=== PATIENT | male | born 1970 | race Caucasian/White ===

== ENCOUNTER 2020-06-21 14:52 | Emergency (ER) | payer SELFPAY ==
[2020-06-21 14:59] VITALS: BP 126/68; PULSE 91; RESP 20; TEMP 37; O2SAT 97
[2020-06-21] MEDS: LIDO 1%/SOD BICARB 8.4% (10ML) 10 ML SYRINGE INJ (16:00)
--- NOTE | 2020-06-21 19:44 | ED.SKABFB ---
HPI - Skin/Abscess/Foreign Bdy <LUIS EDUARDO Sands - Last Filed: 06/21/20 19:49> General Chief complaint: Skin/Abscess/Foreign Body Stated complaint: states a boil on his back Time Seen by Provider: 06/21/20 14:58 Source: patient Mode of arrival: Ambulatory Limitations: no limitations History of Present Illness HPI narrative: The patient is a 50-year-old male nonsmoker who denies pertinent medical history presents with a chief complaint of an abscess on his back. He has noted it to be there for about 4 days. No fevers nausea vomiting or diarrhea. He states he has a history of abscesses, is unsure whether not he has had MRSA. He states he would like to have the abscess evaluated and she is concerned that is on the back of his heart. States that he has had to have abscesses drained in the past. States his becoming history painful. Has not taken anything to feel better. Related Data Previous Rx's Medication Instructions Recorded cephalexin 500 mg PO TID #30 cap 06/21/20 doxycycline hyclate 100 mg PO BID #14 tab 06/21/20 Allergies Allergy/AdvReac Type Severity Reaction Status Date / Time No Known Drug Allergies Allergy Verified 06/21/20 15:17 Review of Systems <LUIS EDUARDO Sands - Last Filed: 06/21/20 19:49> Review of Systems Narrative: GENERAL: Denies chills, fatigue, malaise, fever, sweats. HEENT: Denies sinus pain, ear pain, sore throat, difficulty swallowing, dizziness. RESPIRATORY: Denies dyspnea, cough, wheezing, hemoptysis, sputum. CARDIOVASCULAR: Denies chest pain, palpitations, orthopnea, edema, GASTROINTESTINAL: Denies nausea, vomiting, abdominal pain, diarrhea, constipation, melena. : Denies dysuria, frequency, incontinence, hematuria, urinary retention. MUSCULOSKELETAL: denies weakness, joint pain, or bony pain SKIN: See HPI NEUROLOGIC: Denies weakness, headache, numbness, change in speech, confusion, seizures, incoordination. PSYCHIATRIC: No concerning psychosocial issues. 12 point review of systems is negative except for those stated above Exam <LUIS EDUARDO Sands - Last Filed: 06/21/20 19:49> Narrative Exam Narrative: GENERAL: This is a well-nourished, well-developed patient, in no acute distress HEAD: Atraumatic. Normocephalic. No temporal or scalp tenderness. EYES: Pupils equal round and reactive. Extraocular motions intact. No scleral icterus. No injection or drainage. ENT: Nose without bleeding, purulent drainage or septal hematoma. Throat without erythema, tonsillar hypertrophy or exudate. Uvula midline. Airway patent. NECK: Trachea midline. No JVD or lymphadenopathy. Supple, nontender, no meningeal signs. CARDIOVASCULAR: Regular rate and rhythm RESPIRATORY: Clear to auscultation. Breath sounds equal bilaterally. No wheezes, rales, or rhonchi. No cough. No increased respiratory effort. No accessory muscle use. EXTREMITIES: No clubbing, cyanosis, or edema. No joint tenderness, effusion, or edema noted. BACK: CT and L-spine are Nontender without deformity or crepitance. No flank tenderness. 4 x 4 cm abscess noted right shoulder. 3 x 3 cm a palpable fluctuance. Overlying erythema noted. Pustule noted on top. NEURO: AOx3. SKIN: See back exam Initial Vital Signs Initial Vital Signs: Vital Signs Temperature 98.6 F 06/21/20 14:59 Pulse Rate 91 H 06/21/20 14:59 Respiratory Rate 20 06/21/20 14:59 Blood Pressure 126/68 06/21/20 14:59 Pulse Oximetry 97 06/21/20 14:59 <Alexei Cotto DO - Last Filed: 06/22/20 23:42> Initial Vital Signs Initial Vital Signs: Vital Signs Temperature 98.6 F 06/21/20 14:59 Pulse Rate 91 H 06/21/20 14:59 Respiratory Rate 06/21/20 14:59 Blood Pressure 126/68 06/21/20 14:59 Pulse Oximetry 97 06/21/20 14:59 Procedures <LUIS EDUARDO Sands - Last Filed: 06/21/20 19:49> Abscess I/D I&D #1: Site: back Side (if applicable): right Local Anesthetic: lidocaine 1% and with bicarb Amount of anesthesia used (mL): 6 Technique: incised with #11 blade Irrigation: Yes Packing used?: none Complications: pain Course <LUIS EDUARDO Sands - Last Filed: 06/21/20 19:49> Orders Ordered: Discontinued Medications Lidocaine/Sodium Bicarbonate (Buffered Lidocaine 10 Ml Syr) 10 ml INJ NOW ONE Stop: 06/21/20 15:05 Last Admin: 06/21/20 16:00 Dose: 10 ml Documented by: DU Vital Signs Vital signs: Vital Signs - 8 hr 06/21/20 14:59 Temperature 98.6 F Pulse Rate 91 H Respiratory Rate 20 Blood Pressure 126/68 Pulse Oximetry 97 <Alexei Cotto DO - Last Filed: 06/22/20 23:42> Orders Ordered: Discontinued Medications Lidocaine/Sodium Bicarbonate (Buffered Lidocaine 10 Ml Syr) 10 ml INJ NOW ONE Stop: 06/21/20 15:05 Last Admin: 06/21/20 16:00 Dose: 10 ml Documented by: DU Vital Signs Vital signs: Vital Signs - 8 hr 06/21/20 14:59 Temperature 98.6 F Pulse Rate 91 H Respiratory Rate 20 Blood Pressure 126/68 Pulse Oximetry 97 MDM - Skin/Abscess/Foreign Bdy <LUIS EDUARDO Sands - Last Filed: 06/21/20 19:49> Differential Diagnosis Differential diagnosis: Likely abscess of skin or subcutaneous tissue MDM Narrative Medical decision making narrative: The patient is a 50-year-old male who presents with a chief complaint of an abscess. His abscess was drained, tolerated well. Given that he has a history of abscesses, is unclear about MRSA history will provide coverage with Keflex and doxycycline. Discussed using warm packs, monitoring for fevers extending redness signs of infection. Gave contact information to the [facility] health family resource management specialist with instructions to follow up with primary care provider discussed come back to ER for acute concerns. Patient has no questions or concerns upon discharge and states understanding return precautions as well as follow-up care. Discharge Plan Departure Patient Disposition: Home Clinical Impression: Abscess of skin or subcutaneous tissue Qualifiers: Site of cutaneous abscess: trunk Site of cutaneous abscess of trunk: back Qualified Code(s): L02.212 - Cutaneous abscess of back [any part, except buttock] Discharge Date/Time: 06/21/20 16:45 Instructions: DI for Skin Abscess, DI for Incision and Drainage Activity Restrictions/Additional Instructions: Thank you for trusting us with your care today. Today I drained an abscess. [facility]. Please take them with probiotic or yogurt. Please monitor for fevers, vomiting, diarrhea or signs of worsening. Please use warm packs to help the abscess continue to drain and [id number] medications as needed and able Please follow-up with primary care provider in the next few days. I have given contact information to the [facility] family resource management specialist who can help you find a primary care Prescriptions: New cephalexin 500 mg capsule 500 mg PO TID Qty: 30 RF: 0 doxycycline hyclate 100 mg tablet 100 mg PO BID Qty: 14 RF: 0 Referrals: [facility] [Outside] <Alexei Cotto DO - Last Filed: 06/22/20 23:42> Cosign ED Attending Cosignature Attestation: I was immediately available in the department for consultation. This documentation has been reviewed and I agree with assessment and plan. Supervised by Alexei Cotto DO
== END 2020-06-21 16:45 | disposition home or self-care (01) ==
PROVIDERS: Emergency Provider Nurse Practitioner Family
DX: L02.212 Cutaneous abscess of back [any part, except buttock and flank] (principal)
CPT/HCPCS: 10060; 87070; 87075; 87205; 99283

== ENCOUNTER 2020-10-15 19:15 | Observation (INO) | payer OTHER, MEDICAID, SELFPAY ==
[2020-10-15] VITALS (22 sets, daily range): BP systolic 114–140; BP diastolic 62–76; PULSE 79–96; RESP 15–27; TEMP 37–38.1; O2SAT 90–100; BMI 29.2
--- NOTE | 2020-10-15 19:29 | ED.RECABL ---
HPI - Recheck/Abnormal Lab/Rx General Chief Complaint: Recheck/Abnormal Lab/Rx Stated Complaint: sent for abn labs Time Seen by Provider: 10/15/20 19:20 Source: patient Mode of arrival: Ambulatory Limitations: no limitations History of Present Illness HPI narrative: 50-year-old male nonsmoker with history reflux presents at the request of his primary care provider. He was in for routine visit and labs were drawn which were found to note a critically low calcium, he was sent here for further evaluation. He denies any symptoms of bilateral knee pain. He is not dizzy nor weak or lightheaded. Denies chest pain shortness of breath. He has had no abdominal pain, nausea vomiting. He denies any exposure to known COVID and has had no runny nose, sore throat or cough. He denies any dietary change. MD complaint: abnormal lab Related Data Previous Rx's Medication Instructions Recorded cephalexin 500 mg PO TID #30 cap 06/21/20 doxycycline hyclate 100 mg PO BID #14 tab 06/21/20 Allergies Allergy/AdvReac Type Severity Reaction Status Date / Time No Known Drug Allergies Allergy Verified 06/21/20 15:17 Review of Systems Constitutional Constitutional: Denies chills, Denies fatigue, Denies fever(s), Denies frequent falls, Denies lethargy and Denies weakness Eyes Eyes: Denies change in vision, Denies eye discharge, Denies irritation and Denies loss of vision ENT Ears, Nose, Mouth, and Throat: Denies change in voice, Denies dizziness, Denies neck pain, Denies sore throat and Denies throat swelling Cardiovascular Cardiovascular: Denies chest pain, Denies irregular heart rhythm, Denies lightheadedness, Denies palpitations, Denies dyspnea, Denies dyspnea on exertion and Denies orthopnea Respiratory Respiratory: Denies cough, Denies dyspnea, Denies dyspnea on exertion and Denies wheezing Gastrointestinal Gastrointestinal: Denies abdominal pain, Denies change in bowel habits, Denies diarrhea, Denies nausea and Denies vomiting Musculoskeletal Musculoskeletal: Denies neck pain and Denies numbness Comments: Bilateral knee pain Integumentary/Breasts Skin/Breast: Denies pruritus, Denies erythema, Denies rash and Denies wounds Neurologic Neurologic: Denies behavioral changes, Denies confusion, Denies dizziness, Denies frequent falls, Denies loss of vision, Denies numbness and Denies weakness Psychiatric Psychiatric: Denies anxiety, Denies behavioral changes, Denies confusion, Denies depression, Denies homicidal ideation and Denies suicidal ideation Endocrine Endocrine: Denies fatigue, Denies flushing and Denies palpitations Hematologic/Lymphatic Hematologic/Lymphatic: Denies easy bruising Allergic/Immunologic Allergic/Immunologic: Denies urticaria, Denies throat swelling and Denies wheezing Patient History Medical History Acute anemia Bilateral knee pain Surgical History No history of previous surgery Family History Mother COPD (chronic obstructive pulmonary disease) Alcoholism Supplemental oxygen dependent Father Alcoholism Social History household members: none Smoking Status: Never smoker Smoking Status: Never smoker alcohol intake frequency: 0-2 drinks per day Substance Use Type: does not use Exam Narrative Exam Narrative: GENERAL: [50] year old patient appears stated age. Well-nourished, well-developed patient, in mild distress. HEAD: Atraumatic. Normocephalic. EYES: Pupils equal round and reactive. Extraocular motions intact. No scleral icterus. Pale conjunctiva ENT: Moist mucous membranesNose without bleeding, purulent drainage. Throat without erythema, tonsillar hypertrophy or exudate. Airway patent. NECK: Trachea midline. Non tender CARDIOVASCULAR: Regular rate and rhythm without murmurs, gallops, or rubs. RESPIRATORY: Clear to auscultation. Breath sounds equal bilaterally. No wheezes, rales, or rhonchi. GASTROINTESTINAL: Abdomen soft, non-tender, nondistended. EXTREMITIES: No edema or joint tenderness. BACK: Nontender without deformity or crepitance. No flank tenderness. NEURO: AOx3. SKIN: No rash or erythema of visible areas Initial Vital Signs Initial Vital Signs: Vital Signs Pulse Rate 96 H 10/15/20 19:20 Blood Pressure 135/63 10/15/20 19:20 Pulse Oximetry 96 10/15/20 19:20 Course Orders Ordered: ED Orders 10/15/20 19:35 Complete Blood Count AUTO DIFF Stat Comprehensive Metabolic Panel Stat Magnesium Stat Vitamin D 25 Hydroxy (D3) Stat 10/15/20 19:39 EKG-12 Lead Stat 10/15/20 19:46 Ionized Calcium Stat Packed Cells Stat Phosphorous Stat Type and Screen Stat 10/15/20 20:37 COVID19 Stat Acetaminophen (Acetaminophen 325 Mg Tablet) 650 mg PO Q6HR PRN PRN Reason: Fever/Mild Pain (1-3) Last Admin: 10/16/20 01:14 Dose: 650 mg Documented by: HEAVEN Sodium Chloride (Normal Saline 0.9%) 1,000 mls @ 100 mls/hr IV CONT RAND Naloxone HCl (Naloxone 0.4 Mg/Ml Vial) 0.2 mg IV Q2MIN PRN PRN Reason: Opiate Reversal Ondansetron HCl (Ondansetron 4 Mg/2 Ml Inj) 4 mg IV Q8HR PRN PRN Reason: Nausea And Vomiting Discontinued Medications Calcitriol (Calcitriol 0.25 Mcg Capsule) 0.25 mcg PO NOW ONE Stop: 10/15/20 21:39 Last Admin: 10/15/20 22:23 Dose: 0.25 mcg Documented by: MARY Calcitriol (Calcitriol 0.25 Mcg Capsule) 0.25 mcg PO NOW ONE Stop: 10/16/20 00:05 Sodium Chloride (Normal Saline 0.9%) 1,000 mls @ 1,000 mls/hr IV BOLUS ONE Stop: 10/15/20 20:25 Last Infusion: 10/15/20 23:08 Dose: 0 mls/hr Documented by: Admin: 10/15/20 19:53 Dose: 1,000 mls/hr Documented by: MARY Magnesium Sulfate (Magnesium Sulfate) 2 gm in 50 mls @ 25 mls/hr IV NOW ONE Stop: 10/15/20 22:18 Last Infusion: 10/15/20 23:02 Dose: 0 mls/hr Documented by: MARY Cosigned by: SYLVIA Admin: 10/15/20 20:52 Dose: 25 mls/hr Documented by: MARY Cosigned by: MARIE Potassium Chloride 40 meq/ (Sodium Chloride) 520 mls @ 130 mls/hr IV NOW ONE Stop: 10/16/20 00:20 Last Infusion: 10/15/20 23:07 Dose: 0 mls/hr Documented by: MARY Cosigned by: SYLVIA Admin: 10/15/20 20:33 Dose: 130 mls/hr Documented by: MARY Cosigned by: SYLVIA Calcium Gluconate 9.3 meq/ (Sodium Chloride) 70 mls @ 140 mls/hr IV NOW ONE Stop: 10/15/20 21:13 Last Infusion: 10/15/20 21:43 Dose: 0 mls/hr Documented by: Admin: 10/15/20 21:06 Dose: 140 mls/hr Documented by: MARY Magnesium Sulfate (Magnesium Sulfate) 2 gm in 50 mls @ 25 mls/hr IV NOW ONE Stop: 10/16/20 02:03 Potassium Chloride (Potassium Chloride 20 Meq Tab) 40 meq PO NOW ONE Stop: 10/16/20 00:05 Consultations Consultation #1: discussed electrolyte abnormalities with Nephrology at [facility] ([place]). Happy with plan to initially replace Mag followed by K and Ca. Recommends PTH, Vit D. Hospitalization, following labs. Consultation #2: hospitalist happy to accept Vital Signs Vital signs: Vital Signs - 8 hr 10/15/20 19:20 10/15/20 19:24 10/15/20 19:30 Temperature 99.6 F Pulse Rate 96 H 93 H 92 H Respiratory Rate 15 Blood Pressure 135/63 135/63 Pulse Oximetry 96 98 98 10/15/20 20:00 10/15/20 20:30 10/15/20 21:00 Temperature Pulse Rate 91 H 85 85 Respiratory Rate 26 H 21 Blood Pressure 137/68 118/64 130/66 Pulse Oximetry 100 99 100 10/15/20 21:19 10/15/20 21:20 10/15/20 21:22 Temperature 100.0 F H Pulse Rate 83 83 81 Respiratory Rate 20 23 22 Blood Pressure 126/66 120/66 126/66 Pulse Oximetry 99 99 10/15/20 21:25 10/15/20 21:26 10/15/20 21:30 Temperature 100.4 F H Pulse Rate 83 91 H 82 Respiratory Rate 18 19 20 Blood Pressure 123/66 123/66 125/69 Pulse Oximetry 99 99 10/15/20 21:33 10/15/20 21:35 10/15/20 21:40 Temperature 100.5 F H 99.8 F H Pulse Rate 84 93 H 80 Respiratory Rate 24 27 H 24 Blood Pressure 125/69 114/74 140/68 Pulse Oximetry 100 98 10/15/20 21:45 10/15/20 21:50 10/15/20 21:55 Temperature Pulse Rate 82 81 82 Respiratory Rate 20 22 22 Blood Pressure 131/66 131/65 126/62 Pulse Oximetry 98 98 98 10/15/20 22:00 10/15/20 22:05 Temperature Pulse Rate 81 82 Respiratory Rate 21 22 Blood Pressure 130/67 130/70 Pulse Oximetry 98 98 MDM - Recheck/Abnormal Lab/Rx Lab Data Result diagrams: 10/15/20 23:05 10/15/20 23:05 Labs: Lab Results 10/15/20 10/15/20 10/15/20 Range/Units 19:35 19:35 19:35 WBC 10.3 (4.5-11.0) X10^3/uL RBC 3.57 L (4.5-5.9) X10^6/uL Hgb 5.7 L* (13.5-17.5) g/dL Hct 20.1 L* (41-53) % MCV 56.3 L (80-100) fL MCH 15.8 L (26-34) PG MCHC 28.1 L (30-36) % RDW 21.5 H (11.6-14.8) % Plt Count 344 (150-400) X10^3/uL Neut % (Auto) 79.2 H (50-75) % Lymph % (Auto) 12.7 L (25-40) % Smyth % (Auto) 5.7 (3-14) % Eos % (Auto) 1.2 L (2-4) % Baso % (Auto) 1.2 (0-2) % Neut # (Auto) 8100 H (7366-9797) /uL Lymph # (Auto) 1300 (7113-2438) /uL Smyth # (Auto) 600 (0-900) /uL Eos # (Auto) 100 (0-450) /uL Baso # (Auto) 100 (0-100) /uL RBC Morphology Abnormal Polychromasia 1+ H Hypochromasia 4+ H Microcytosis 3+ H Sodium 141 (137-145) mmol/L Potassium 2.7 L* (3.4-5.1) mmol/L Chloride 103 (98-107) mmol/L Carbon Dioxide 27 (22-32) mmol/L BUN 7 L (9-20) mg/dL Creatinine 1.03 (0.66-1.25) mg/dL Estimated GFR > 60.0 (>60) mL/min BUN/Creatinine Ratio 6.8 (6-22) Glucose 119 H (70-100) mg/dL Calcium 5.9 L* (8.4-10.2) mg/dL Phosphorus Magnesium 0.5 L* (1.6-2.3) mg/dL Total Bilirubin 0.3 (0.2-1.3) mg/dL AST 22 (17-59) IU/L ALT 11 (<50) IU/L Alkaline Phosphatase 48 (38-126) U/L Total Protein 7.0 (6.3-8.2) g/dL Albumin 4.0 (3.5-5.0) g/dL Globulin 3.0 (1.7-4.1) g/dL Albumin/Globulin Ratio 1.3 (1.0-2.8) Lipase 25-OH Vitamin D Total 34.0 (30.0-100.0) ng/mL TSH (0.47-4.68) uIU/mL Random Cortisol ug/dL SARS-CoV-2 (PCR) (Negative) Blood Type Antibody Screen Crossmatch 10/15/20 10/15/20 10/15/20 Range/Units 19:35 19:35 19:35 WBC (4.5-11.0) X10^3/uL RBC (4.5-5.9) X10^6/uL Hgb (13.5-17.5) g/dL Hct (41-53) % MCV (80-100) fL MCH (26-34) PG MCHC (30-36) % RDW (11.6-14.8) % Plt Count (150-400) X10^3/uL Neut % (Auto) (50-75) % Lymph % (Auto) (25-40) % Smyth % (Auto) (3-14) % Eos % (Auto) (2-4) % Baso % (Auto) (0-2) % Neut # (Auto) (6026-1983) /uL Lymph # (Auto) (2617-7428) /uL Smyth # (Auto) (0-900) /uL Eos # (Auto) (0-450) /uL Baso # (Auto) (0-100) /uL RBC Morphology Polychromasia Hypochromasia Microcytosis Sodium (137-145) mmol/L Potassium (3.4-5.1) mmol/L Chloride (98-107) mmol/L Carbon Dioxide (22-32) mmol/L BUN (9-20) mg/dL Creatinine (0.66-1.25) mg/dL Estimated GFR (>60) mL/min BUN/Creatinine Ratio (6-22) Glucose (70-100) mg/dL Calcium (8.4-10.2) mg/dL Phosphorus Cancelled Magnesium Cancelled (1.6-2.3) mg/dL Total Bilirubin (0.2-1.3) mg/dL AST (17-59) IU/L ALT (<50) IU/L Alkaline Phosphatase (38-126) U/L Total Protein (6.3-8.2) g/dL Albumin (3.5-5.0) g/dL Globulin (1.7-4.1) g/dL Albumin/Globulin Ratio (1.0-2.8) Lipase Cancelled 25-OH Vitamin D Total (30.0-100.0) ng/mL TSH 1.57 (0.47-4.68) uIU/mL Random Cortisol 7.67 ug/dL SARS-CoV-2 (PCR) (Negative) Blood Type Antibody Screen Crossmatch 10/15/20 10/15/20 10/15/20 Range/Units 19:46 19:46 20:37 WBC (4.5-11.0) X10^3/uL RBC (4.5-5.9) X10^6/uL Hgb (13.5-17.5) g/dL Hct (41-53) % MCV (80-100) fL MCH (26-34) PG MCHC (30-36) % RDW (11.6-14.8) % Plt Count (150-400) X10^3/uL Neut % (Auto) (50-75) % Lymph % (Auto) (25-40) % Smyth % (Auto) (3-14) % Eos % (Auto) (2-4) % Baso % (Auto) (0-2) % Neut # (Auto) (0909-9645) /uL Lymph # (Auto) (0074-4095) /uL Smyth # (Auto) (0-900) /uL Eos # (Auto) (0-450) /uL Baso # (Auto) (0-100) /uL RBC Morphology Polychromasia Hypochromasia Microcytosis Sodium (137-145) mmol/L Potassium (3.4-5.1) mmol/L Chloride (98-107) mmol/L Carbon Dioxide (22-32) mmol/L BUN (9-20) mg/dL Creatinine (0.66-1.25) mg/dL Estimated GFR (>60) mL/min BUN/Creatinine Ratio (6-22) Glucose (70-100) mg/dL Calcium (8.4-10.2) mg/dL Phosphorus 2.9 Magnesium (1.6-2.3) mg/dL Total Bilirubin (0.2-1.3) mg/dL AST (17-59) IU/L ALT (<50) IU/L Alkaline Phosphatase (38-126) U/L Total Protein (6.3-8.2) g/dL Albumin (3.5-5.0) g/dL Globulin (1.7-4.1) g/dL Albumin/Globulin Ratio (1.0-2.8) Lipase 25-OH Vitamin D Total (30.0-100.0) ng/mL TSH (0.47-4.68) uIU/mL Random Cortisol ug/dL SARS-CoV-2 (PCR) Negative (Negative) Blood Type A Positive Antibody Screen Negative Crossmatch See Detail Critical Care Time Critical Care Time Critical Care Time: Yes Total Critical Care Time: 30 Attestation: The high probability of a clinically significant, sudden or life threatening deterioration of the [] system(s) required my full and direct attention, intervention and personal management. The aggregate critical care time was [30] minutes. This time is in addition to time spent performing reported procedures but includes the following: [x] Data Review and interpretation [x] Patient assessment and monitoring of vital signs [x] Documentation [x] Medication orders and management Discharge Plan Departure Patient Disposition: Admitted as Observation Clinical Impression: Hypomagnesemia, Anemia, Hypocalcemia, Acute hypokalemia Admit Date/Time: 10/15/20 22:08 Admit Provider: Nakia Rivera
[2020-10-15 19:45] LABS: Basophils Absolute Auto 100 /uL (0-100); Basophils Percent Auto 1.2 % (0-2); Eosinophils Absolute Auto 100 /uL (0-450); Monocytes Absolute Auto 600 /uL (0-900)
[2020-10-15 19:48] LABS: Add Manual Diff / Slide Review NO; Eosinophils Percent Auto 1.2 % (2-4); Lymphocytes Absolute Auto 1300 /uL (1100-4500); Lymphocytes Percent Auto 12.7 % (25-40); Mean Corpuscular HGB Conc 28.1 % (30-36); Mean Corpuscular Hemoglobin 15.8 PG (26-34); Mean Corpuscular Volume 56.3 fL (80-100); Monocytes Percent Auto 5.7 % (3-14); Neutrophils Absolute Auto 8100 /uL (1500-7000); Neutrophils Percent Auto 79.2 % (50-75); Platelet Count 344 X10^3/uL (150-400); Red Blood Cell Count 3.57 X10^6/uL (4.5-5.9); Red Cell Distribution Width 21.5 % (11.6-14.8); White Blood Cell Count 10.3 X10^3/uL (4.5-11.0)
[2020-10-15 19:49] LABS: Hemoglobin 5.7 g/dL (13.5-17.5)
[2020-10-15 19:51] LABS: Hematocrit 20.1 % (41-53)
[2020-10-15] MEDS: SODIUM CHLORIDE 0.9% 1,000 ML 1000 ML IV (19:53)
[2020-10-15 19:55] LABS: Alanine Aminotransferase 11 IU/L (<50); Albumin Globulin Ratio 1.3 (1.0-2.8); Alkaline Phosphatase 48 U/L (38-126); Aspartate Aminotransferase 22 IU/L (17-59); BUN Creatinine Ratio 6.8 (6-22); Bilirubin Total 0.3 mg/dL (0.2-1.3); Blood Urea Nitrogen 7 mg/dL (9-20); Carbon Dioxide 27 mmol/L (22-32); Chloride 103 mmol/L (98-107); Estimated Glomerular Filt Rate > 60.0 mL/min (>60); Glucose 119 mg/dL (70-100); HEMOLYSIS < 15 (0-50); Sodium 141 mmol/L (137-145)
[2020-10-15 20:05] LABS: Hypochromasia 4+; Microcytosis 3+; Polychromasia 1+; RBC Morphology ABNORMAL
[2020-10-15 20:21] LABS: Potassium 2.7 mmol/L (3.4-5.1)
[2020-10-15 20:22] LABS: Calcium 5.9 mg/dL (8.4-10.2); Magnesium 0.5 mg/dL (1.6-2.3)
[2020-10-15] MEDS: POTASSIUM CHLORIDE 40 MEQ in SODIUM CHLORIDE 0.9% 500 ML 130 ML IV (20:33)
[2020-10-15] MEDS: MAGNESIUM SULFATE 2 GM/50 ML PIGGYBACK IV (20:52)
[2020-10-15 20:53] LABS: Phosphorous 2.9 mg/dL (2.5-4.5)
[2020-10-15] MEDS: CALCIUM GLUCONATE 9.3 MEQ in SODIUM CHLORIDE 0.9% 50 ML 140 ML IV (21:06)
[2020-10-15 21:45] LABS: COVID19 -Nasal RAPID Negative (Negative)
[2020-10-15] MEDS: calcitrioL 0.25 MCG CAPSULE PO (22:23)
--- NOTE | 2020-10-15 23:15 | P.HP_ITS ---
History of Present Illness History of Present Illness Date Patient Seen: 10/15/20 Time Patient Seen: 23:15 Chief complaint: sent for abn labs Narrative: Dejan Monroe is a 50 y.o. 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 Per patient, he stated they told him to go the the ED, apparently he was driving home and decided to present to [facility]. In the emergency department he was found to have a hemoglobin and hematocrit of 5.7 and 20.1, respectively, his potassium was critically low at 2.7, calcium was also critically low at 5.9 with the corrected calcium of 6.7. The patient states that the only problem he has is GERD for which he takes Zygrid for heartburn. He denies fevers sweats or chills, visual changes, difficulty swallowing, chest pain, shortness of breath, he does endorse having soft stools in states he has seen blood in it for the past month, he denies any hematuria or dysuria, denies musculoskeletal complaints other than having both knees needing replacement, he denies having weakness though he states he has a little bit fatigued, denies polydipsia or easy bleeding or bruising. Patient is mildly febrile at 99.8, blood pressure 127/65, heart rate 85, respiratory rate 22, oxygen saturation of 90% on room air he weighs 95.2 kg with a BMI of 29. Patient History Medical History Acute anemia Bilateral knee pain Surgical History No history of previous surgery Family & Social History Family History Mother COPD (chronic obstructive pulmonary disease) Alcoholism Supplemental oxygen dependent Father Alcoholism Safety & Behavioral: Feels Safe in Current Yes Environment Tobacco & Substance use: Smoking Status Never smoker alcohol intake frequency 0-2 drinks per day Substance Use Type does not use Meds Home Medications and Allergies Home Medications Medication Instructions Recorded Confirmed Type cephalexin 500 mg PO TID #30 cap 06/21/20 Rx doxycycline hyclate 100 mg PO BID #14 tab 06/21/20 Rx Allergies Allergy/AdvReac Type Severity Reaction Status Date / Time No Known Drug Allergies Allergy Verified 06/21/20 15:17 Review of Systems Review of Systems ROS: Yes All systems reviewed with the patient and are negative except as otherwise documented Exam Vital Signs (past 8 hours): - 10/15/20 19:20 10/15/20 19:24 10/15/20 19:30 Temperature 99.6 F Pulse Rate 96 H 93 H 92 H Respiratory Rate 15 Blood Pressure 135/63 135/63 Pulse Oximetry 96 98 98 10/15/20 20:00 10/15/20 20:30 10/15/20 21:00 Temperature Pulse Rate 91 H 85 85 Respiratory Rate 26 H 21 Blood Pressure 137/68 118/64 130/66 Pulse Oximetry 100 99 100 10/15/20 21:19 10/15/20 21:20 10/15/20 21:22 Temperature 100.0 F H Pulse Rate 83 83 81 Respiratory Rate 20 23 22 Blood Pressure 126/66 120/66 126/66 Pulse Oximetry 99 99 10/15/20 21:25 10/15/20 21:26 10/15/20 21:30 Temperature 100.4 F H Pulse Rate 83 91 H 82 Respiratory Rate 18 19 20 Blood Pressure 123/66 123/66 125/69 Pulse Oximetry 99 99 10/15/20 21:33 10/15/20 21:35 10/15/20 21:40 Temperature 100.5 F H 99.8 F H Pulse Rate 84 93 H 80 Respiratory Rate 24 27 H 24 Blood Pressure 125/69 114/74 140/68 Pulse Oximetry 100 98 10/15/20 21:45 10/15/20 21:50 10/15/20 21:55 Temperature Pulse Rate 82 81 82 Respiratory Rate 20 22 22 Blood Pressure 131/66 131/65 126/62 Pulse Oximetry 98 98 98 10/15/20 22:00 10/15/20 22:05 10/15/20 22:10 Temperature Pulse Rate 81 82 85 Respiratory Rate 21 22 22 Blood Pressure 130/67 130/70 127/65 Pulse Oximetry 98 98 98 Oxygen Delivery Method Room Air Narrative Exam Narrative: Gen: Alert, oriented, well-developed 50 y.o. male, ill appearing HEENT: normocephalic, atraumatic, conjunctiva clear, sclera non-icteric, oral mucosa pink and moist Neck: supple, full ROM, no JVD, trachea is midline Resp: Lungs CTA, non-labored breathing CV: RRR, no murmur or rubs Abd: soft, non-tender, normoactive BTs Skin: no lesions or rashes, dry and intact Neuro: Alert and oriented X 4 w/no focal deficits. Speech clear and coherent. Extremities: moves all 4 extremities, is ambulatory, negative Subhash?s sign Psyche: flat and odd affect. Objective Labs Result Diagrams: 10/15/20 23:05 10/15/20 23:05 Labs: Laboratory Results - last 24 hr 10/15/20 10/15/20 10/15/20 19:35 19:35 19:35 WBC 10.3 RBC 3.57 L Hgb 5.7 L* Hct 20.1 L* MCV 56.3 L MCH 15.8 L MCHC 28.1 L RDW 21.5 H Plt Count 344 Neut % (Auto) 79.2 H Lymph % (Auto) 12.7 L [place] % (Auto) 5.7 Eos % (Auto) 1.2 L Baso % (Auto) 1.2 Neut # (Auto) 8100 H Lymph # (Auto) 1300 [place] # (Auto) 600 Eos # (Auto) 100 Baso # (Auto) 100 RBC Morphology Abnormal Polychromasia 1+ H Hypochromasia 4+ H Microcytosis 3+ H Sodium 141 Potassium 2.7 L* Chloride 103 Carbon Dioxide 27 BUN 7 L Creatinine 1.03 Estimated GFR > 60.0 BUN/Creatinine Ratio 6.8 Glucose 119 H Calcium 5.9 L* Phosphorus Magnesium 0.5 L* Total Bilirubin 0.3 AST 22 ALT 11 Alkaline Phosphatase 48 Total Protein 7.0 Albumin 4.0 Globulin 3.0 Albumin/Globulin Ratio 1.3 25-OH Vitamin D Total 34.0 SARS-CoV-2 (PCR) Blood Type Antibody Screen Crossmatch 10/15/20 10/15/20 10/15/20 19:46 19:46 20:37 WBC RBC Hgb Hct MCV MCH MCHC RDW Plt Count Neut % (Auto) Lymph % (Auto) [place] % (Auto) Eos % (Auto) Baso % (Auto) Neut # (Auto) Lymph # (Auto) [place] # (Auto) Eos # (Auto) Baso # (Auto) RBC Morphology Polychromasia Hypochromasia Microcytosis Sodium Potassium Chloride Carbon Dioxide BUN Creatinine Estimated GFR BUN/Creatinine Ratio Glucose Calcium Phosphorus 2.9 Magnesium Total Bilirubin AST ALT Alkaline Phosphatase Total Protein Albumin Globulin Albumin/Globulin Ratio 25-OH Vitamin D Total SARS-CoV-2 (PCR) Negative Blood Type A Positive Antibody Screen Negative Crossmatch See Detail Assessment & Plan Assessment & Plan narrative: Dejan Monroe will be admitted as observation for further workup of severe symptomatic anemia and electrolyte abnormalities. Symptomatic anemia, acute, present on admission -patient's presenting hemoglobin and hematocrit was 5.7/20.1 and corrected to 6.1/21.2 respectively after 1 unit PRBC. He will receive 1 more unit PRBC prior to the 0500 labs. -CT of the chest, abdomen and pelvis did not reveal a source of bleeding, however noted bilateral ground glass opacities with right lower lobe consolidation concernign for a viral/atypical pneumonia. -Higher sensitivity COVID-19 was also negative. -Procalcitonin pending, if positive, will initiate ceftriaxone/azith for pneumonia. Acute hypokalemia, present on admission -patient's initial potassium on admission was 2.7 and after receiving potassium replacement of IV potassium 40 mEq, it has come up to 3.2 -he will receive another 40 mEq of p.o. potassium, recheck potassium in the morning Acute hypomagnimesia, present on admission -patient's initial magnesium was 0.5 and increased to 1.0 after receiving 2 g of IV magnesium -she is ordered for 2 more g of IV magnesium, recheck magnesium in the morning Acute hypocalcemia, present on admission -Patient's initial calcium was 5.2 and increased to 6.2 after receiving Calcitrol 0.25 x1 and will receive another dose before the mornings recheck of h is calcium level -corrected calcium was 6.7 and 7.0 respectively, still too low. -the ED ordered calcium PTH intact, PTH intact, intact intraoperative, these are all send outs and will be resulted at a later time. -patient's p.m. cortisol and vitamin-D levels were within normal limits VTE prophylaxis: Wells risk score: 0 Bilateral SCDs Consults: []none [] consult and involvement is appreciated. Patient is admitted under inpatient status with expected length of stay greater than 2 midnights due to severity of presenting symptoms, risk of adverse event, and complexity of treatment plan. FEN: IV saline lock, general diet, BMP and magnesium in the am. Dispo: Unknown at this time Code Status: Full code as discussed with patient COVID-19 COVID-19 status: Negative Result date/Date tested (Pos, Neg/Pending): 10/15/20 Scores Wells' Criteria for PE Clinical signs and symptoms of DVT: No PE is #1 Dx or equally likely: No Heart rate > 100: No Immobilization at least 3 days or surg in previous 4 weeks: No History of PE or DVT: No Hemoptysis: No Malignancy w/Treatment within 6 months or palliative: No Wells' PE Score total: 0
[2020-10-15 23:38] LABS: Add Manual Diff / Slide Review NO; Basophils Absolute Auto 100 /uL (0-100); Basophils Percent Auto 1.2 % (0-2); Eosinophils Absolute Auto 200 /uL (0-450); Eosinophils Percent Auto 1.9 % (2-4); Hematocrit 21.2 % (41-53); Lymphocytes Absolute Auto 1800 /uL (1100-4500); Lymphocytes Percent Auto 17.2 % (25-40); Mean Corpuscular HGB Conc 28.7 % (30-36); Mean Corpuscular Volume 59.3 fL (80-100); Monocytes Absolute Auto 600 /uL (0-900); Monocytes Percent Auto 6.2 % (3-14); Neutrophils Absolute Auto 7500 /uL (1500-7000); Neutrophils Percent Auto 73.5 % (50-75); Platelet Count 340 X10^3/uL (150-400); Red Blood Cell Count 3.58 X10^6/uL (4.5-5.9); Red Cell Distribution Width 22.8 % (11.6-14.8); White Blood Cell Count 10.2 X10^3/uL (4.5-11.0)
[2020-10-15 23:42] LABS: Hemoglobin 6.1 g/dL (13.5-17.5)
[2020-10-15 23:51] LABS: BUN Creatinine Ratio 6.9 (6-22); Blood Urea Nitrogen 7 mg/dL (9-20); Carbon Dioxide 30 mmol/L (22-32); Chloride 105 mmol/L (98-107); Estimated Glomerular Filt Rate > 60.0 mL/min (>60); Glucose 102 mg/dL (70-100); HEMOLYSIS < 15 (0-50); Lipase 119 U/L (23-300); Phosphorous 3.8 mg/dL (2.5-4.5); Potassium 3.2 mmol/L (3.4-5.1); Sodium 141 mmol/L (137-145)
[2020-10-15 23:56] LABS: Calcium 6.2 mg/dL (8.4-10.2)
[2020-10-15 23:59] LABS: TSH w/ Reflex to FT4 1.57 uIU/mL (0.47-4.68)
[2020-10-16] VITALS (12 sets, daily range): BP systolic 109–137; BP diastolic 60–80; PULSE 73–83; RESP 17–24; TEMP 36.1–37.4; O2SAT 94–99
[2020-10-16 00:05] LABS: Cortisol Random 7.67 ug/dL
--- NOTE | 2020-10-16 00:17 | DI.CT.S_ITS ---
PROCEDURE: CT CHEST ABD PEL W CON INDICATIONS: Weakness, anemia, electrolyte abnormalities TECHNIQUE: After the administration of intravenous contrast, 5 mm thick sections acquired from the lung apices to the symphysis. 5 mm coronal and sagittal reformats were performed, with additional 7 mm MIP reformats through the lungs. For radiation dose reduction, the following was used: automated exposure control, adjustment of mA and/or kV according to patient size. COMPARISON: None. FINDINGS: Image quality: Excellent. CHEST: Lungs and pleura: There are bilateral scattered indistinct areas of predominantly peripheral ground-glass opacities with a peripheral region of confluent consolidation posteriorly in the right lower lobe. There is mild linear and nodular thickening along the left major fissure on series 3, images 153 and 156 as well as along the right major fissure on images 175 and 200. The nodular components measure up to 5 mm along the right lower lobe. Findings are suggestive of intrapulmonary lymph nodes. No pleural effusions or pneumothorax. Central and peripheral airways appear patent and normal in caliber. Mediastinum: Heart size is normal. No pericardial effusion. There is mild coronary arterial vascular calcification. No mediastinal or hilar adenopathy by size criteria. Thoracic aorta and central pulmonary arteries are normal in size. Esophagus is normal in caliber. There is a small hiatal hernia. Chest wall: No axillary or supraclavicular adenopathy by size criteria. ABDOMEN: Solid organs: Evaluation of the liver demonstrates no focal hepatic lesions. The gallbladder appears within normal limits without calcified gallstones. Biliary system is non-dilated. Pancreas enhances normally. No peripancreatic fat stranding or fluid collections. No pancreatic duct dilatation. The spleen is normal in size. No adrenal nodules. Kidneys demonstrate no hydronephrosis. Peritoneum and bowel: Bowel loops demonstrate normal wall thickness and caliber. There are few scattered nonspecific air-fluid levels within nondistended loops of small bowel. The appendix is normal in appearance. There is colonic diverticulosis without acute diverticulitis. No free fluid or air. Nodes and vessels: No retroperitoneal or mesenteric adenopathy by size criteria. Aorta and inferior vena cava are normal in size. Miscellaneous: No ventral hernias. PELVIS: Genitourinary: Bladder wall thickness is normal. Miscellaneous: There are bilateral fat-containing inguinal hernias, moderate to large in size on the right and small on the left. No inguinal adenopathy. Bones: No suspicious bony lesions. No vertebral body compression fractures. IMPRESSION: 1. Bilateral peripheral patchy areas of ground-glass opacity with a confluent region of consolidation in the right lower lobe. Findings likely represent pneumonia, possibly from atypical viral etiologies. 2. Bilateral fat-containing inguinal hernias, including a moderate to large hernia on the right. 3. Scattered nonspecific small bowel air-fluid levels without abnormal distention to suggest obstruction. Findings may represent a mild enteritis or ileus. 4. Small hiatal hernia. Concordant with preliminary interpretation. Dictated by: Brendon Maldonado M.D. on 10/16/2020 at 8:31 Approved by: Brendon Maldonado M.D. on 10/16/2020 at 8:44
[2020-10-16] MEDS: ACETAMINOPHEN 325 MG TABLET 650 MG PO (01:14)
[2020-10-16] MEDS: MAGNESIUM SULFATE 2 GM/50 ML PIGGYBACK IV (03:06)
[2020-10-16] MEDS: SODIUM CHLORIDE 0.9% 1,000 ML 100 ML IV ×2 (03:06→13:39)
[2020-10-16] MEDS: POTASSIUM CHLORIDE 20 MEQ TAB 40 MEQ PO (03:35)
[2020-10-16 03:38] LABS: COVID19 -Nasal RAPID Negative (Negative)
[2020-10-16 06:41] LABS: Alanine Aminotransferase 8 IU/L (<50); Albumin 3.3 g/dL (3.5-5.0); Albumin Globulin Ratio 1.3 (1.0-2.8); Alkaline Phosphatase 49 U/L (38-126); Aspartate Aminotransferase 19 IU/L (17-59); BUN Creatinine Ratio 7.4 (6-22); Bilirubin Total 0.7 mg/dL (0.2-1.3); Blood Urea Nitrogen 7 mg/dL (9-20); Carbon Dioxide 29 mmol/L (22-32); Chloride 107 mmol/L (98-107); Estimated Glomerular Filt Rate > 60.0 mL/min (>60); Globulin 2.6 g/dL (1.7-4.1); Glucose 95 mg/dL (70-100); HEMOLYSIS < 15 (0-50); Magnesium 1.7 mg/dL (1.6-2.3); Potassium 3.1 mmol/L (3.4-5.1); Sodium 138 mmol/L (137-145); Total Protein 5.9 g/dL (6.3-8.2)
[2020-10-16 06:46] LABS: Procalcitonin < 0.05 ng/mL (<0.5)
[2020-10-16 06:50] LABS: UR Morphine/Opiate cutoff 300 Negative (Negative); Ur Creatinine Normal (Normal); Ur Specific Gravity Normal (Normal); Urine Amphetamines Negative (Negative); Urine Barbiturates Negative (Negative); Urine Benzodiazepines Negative (Negative); Urine Cocaine Negative (Negative); Urine MDMA Negative (Negative); Urine Methadone Negative (Negative); Urine Methamphetamines Negative (Negative); Urine Oxycodone Negative (Negative); Urine Phencyclidine Negative (Negative); Urine Tetrahydrocannabinol Negative (Negative); Urine Tricyclic Antidepressant Negative (Negative); Urine pH Normal (Normal)
[2020-10-16 06:54] LABS: Bacteria Urine None Seen; RBC Urine None Seen (0-5/HPF)
[2020-10-16 06:56] LABS: Appearance Urine UA CLEAR; Bilirubin Urine UA NEGATIVE (NEGATIVE); Color Urine UA YELLOW; Glucose Urine UA TRACE g/dL (Negative); Ketones Urine UA NEGATIVE (NEGATIVE); Leukocyte Esterase Urine UA NEGATIVE (NEGATIVE); Nitrite Urine UA NEGATIVE (Negative); Occult Blood Urine UA NEGATIVE (Negative); Protein Urine UA NEGATIVE (Negative); Specific Gravity Urine UA <=1.005 (1.000-1.035); Urobilinogen Urine UA 0.2 E.U./dL (0.2)
[2020-10-16] MEDS: calcitrioL 0.25 MCG CAPSULE PO (06:59)
[2020-10-16 07:09] LABS: Culture Indicated Urine Cult Not Indicated; WBC Urine 0-1/HPF (0-5/HPF)
--- NOTE | 2020-10-16 10:31 | PC.NURSE ---
Addendum entered by Anne Marin R.N. 10/16/20 13:42: Patient up to restroom to void. Reminded to use the urinal so we could measure. Patient flushed. Unmeasured void recorded. Patient up to chair at this time. Denies dizziness, lightheadedness or pain. Noted increased WOB with activity. Patient denies feeling SOB. Pt 98 % on RA, RR elevated but returns to baseline with rest. Original Note: Patient resting in bed, A/Ox4. Denies lightheadedness, dizziness, numbness/tingling, or chest pain at this time. Tele intact. Pulses equal bilaterally, no edema noted in BLE. Patient denies pain, reports fatigue and generalized weakness r/t fatigue, also reports GERD, aware. Pt understands to call before getting OOB. Bed alarm on. Patient voiding in restroom with SBA, BM this AM, negative guiac. Denies abdominal tenderness. BT active x4. Patient consumed moderate breakfast, requested ice cream to minimize heartburn. NS@100 infusing in the R AC, site is CDI. L Hand IV site is CDI. SCD's on bilaterally. Call light in reach.
[2020-10-16] MEDS: PANTOPRAZOLE 40 MG TABLET PO ×2 (11:59→21:08)
[2020-10-16] MEDS: CALCIUM GLUCONATE 9.3 MEQ in SODIUM CHLORIDE 0.9% 50 ML 140 ML IV (16:15)
--- NOTE | 2020-10-16 16:15 | CM.DANOTE ---
Discharge Planning/Care Management DCP: assessment: case received, EMR reviewed. Discussed in Team Rounds. Dr. Hull is on today as hospitalist. She noted that pt's labs were quite abnormal and etiology of this was unknown. Pt is a 50 year old who resides in an RV on [address] in [place]. PCP: unknown at this time. Pt was reportedly looking into knee surgery and was sent to the ER after concern re labs. H&P from [facility] hospitalist is in place but much is still unknown. She documents pt's admission as INPT status but at this time UR ADEN Garza confirms OBS is the order. Due to lateness of hour must defer to DCP team on for tomorrow to meet with pt and follow for d/c issues and options. Expect more will be known by Dr. Hull during Team Rounds tomorrow so the DCP team will have some idea of where to focus attention. CM Discharge Assessment Start: 10/16/20 16:14 Freq: Status: Active Protocol: Document 10/16/20 16:14 ITV (Rec: 10/16/20 16:15 ITV [id number]) Discharge Planning Assessment Advance Directives? No History Provided By Medical Record Prior Living Arrangements RV Household Members none Type of transportation used prior to Drives own vehicle admit
--- NOTE | 2020-10-16 16:34 | PC.NURSE ---
Addendum entered by Aditi Rolon R.N. 10/16/20 22:22: IV sites to left forearm and right hand flush easily. Pt c/o pain at left forearm site with infusion of blood. Changed blood transfusion from left forearm site to right hand site. Right hand wrapped in warm blanket. Offered to restart a new iv for blood and pt does not agree at this time. Blood transfusion changed to left forearm site and pt covers this site with warm blanket. No further complaints and this instructional writer requested pt alert staff if discomfort continues. Blood rate increased to 125 cc/hr. Addendum entered by Aditi Rolon R.N. 10/16/20 22:01: First unit PRBC's completed and second unit infusing as ordered per Dr. Hull. Pt mostly sleeping, but rouses easily to voice. Pt is vague with this instructional writer re conversation with Dr. Bronson this evening. This instructional writer did not witness surgeon visiting this patient. Consent unsigned as pt does not seem clear on plan for procedure in a.m. when questioned. Addendum entered by Aditi Rolon R.N. 10/16/20 17:47: pt taking diet well. First unit PRBC's infusing as ordered. Original Note: Dr. Hull saw patient @ beginning of shift while pt was up in recliner. Pt resting quietly in recliner with eyes closed, but rouses easily to movement in room. Pt denies pain, denies nausea. Requests to move into bed for sleep. Pt moves self with standby assistance without assistive device into bed. Denies dizziness when up. BL calf scd's replaced while in bed. Calcium iv replaced as per emar to left inner forearm iv without difficulty.
--- NOTE | 2020-10-16 17:40 | P.PN_ITS ---
Subjective Subjective Date Patient Seen: 10/16/20 Interval history: The patient is a 50-year-old male who was admitted to the hospital for symptomatic anemia hypocalcemia and hypokalemia. The patient reports he has a history of heartburn ?all his life. He continues to complain of heartburn. He denies any hematemesis or melena. To he was markedly hypocalcemic which is continued to be replaced. He received 2 units of blood and his hemoglobin is now 6.1. He is guaiac negative Exam Vital Signs (past 8 hours): - 10/16/20 11:12 10/16/20 15:54 10/16/20 17:36 Temperature 98.0 F 98.0 F 97.7 F Pulse Rate 75 76 76 Respiratory Rate 18 18 18 Blood Pressure 117/69 131/79 137/78 Pulse Oximetry 94 99 Oxygen Delivery Method Room Air Oxygen Flow Rate 0 Narrative Exam Narrative: Pale ill-appearing male who appears weak and tired Lungs: Decreased breath sounds with occasional scattered crackles at the bases bilaterally Cardiac exam: Regular rate and rhythm normal S1-S2 Abdomen: Soft nontender nondistended Extremities: No edema Objective Labs Result Diagrams: 10/15/20 23:05 10/16/20 05:51 Labs: Laboratory Results - last 24 hr 10/15/20 10/15/20 10/15/20 19:35 19:35 19:35 WBC 10.3 RBC 3.57 L Hgb 5.7 L* Hct 20.1 L* MCV 56.3 L MCH 15.8 L MCHC 28.1 L RDW 21.5 H Plt Count 344 Neut % (Auto) 79.2 H Lymph % (Auto) 12.7 L [place] % (Auto) 5.7 Eos % (Auto) 1.2 L Baso % (Auto) 1.2 Neut # (Auto) 8100 H Lymph # (Auto) 1300 [place] # (Auto) 600 Eos # (Auto) 100 Baso # (Auto) 100 RBC Morphology Abnormal Dimorphic RBCs Polychromasia 1+ H Hypochromasia 4+ H Microcytosis 3+ H Sodium 141 Potassium 2.7 L* Chloride 103 Carbon Dioxide 27 BUN 7 L Creatinine 1.03 Estimated GFR > 60.0 BUN/Creatinine Ratio 6.8 Glucose 119 H Calcium 5.9 L* Phosphorus Magnesium 0.5 L* Total Bilirubin 0.3 AST 22 ALT 11 Alkaline Phosphatase 48 Total Protein 7.0 Albumin 4.0 Globulin 3.0 Albumin/Globulin Ratio 1.3 Lipase 25-OH Vitamin D Total 34.0 Procalcitonin TSH Random Cortisol Urine Color Urine Appearance Urine pH Ur Specific Stuart Urine Protein Urine Glucose (UA) Urine Ketones Urine Occult Blood Urine Nitrate Urine Bilirubin Urine Urobilinogen Ur Leukocyte Esterase Urine RBC Urine WBC Urine Bacteria Ur Culture Indicated? U Opiates 300ng/mL cut Ur Oxycodone Screen Urine Methadone Screen Ur Barbiturates Screen U Tricyclic Antidepress Ur Phencyclidine Scrn Ur Amphetamines Screen U Methamphetamines Scrn Ur MDMA Scrn (Ecstasy) U Benzodiazepines Scrn Urine Cocaine Screen U Marijuana (THC) Screen SARS-CoV-2 (PCR) Blood Type Antibody Screen Crossmatch 10/15/20 10/15/20 10/15/20 19:35 19:35 19:35 WBC RBC Hgb Hct MCV MCH MCHC RDW Plt Count Neut % (Auto) Lymph % (Auto) [place] % (Auto) Eos % (Auto) Baso % (Auto) Neut # (Auto) Lymph # (Auto) [place] # (Auto) Eos # (Auto) Baso # (Auto) RBC Morphology Dimorphic RBCs Polychromasia Hypochromasia Microcytosis Sodium Potassium Chloride Carbon Dioxide BUN Creatinine Estimated GFR BUN/Creatinine Ratio Glucose Calcium Phosphorus Cancelled Magnesium Cancelled Total Bilirubin AST ALT Alkaline Phosphatase Total Protein Albumin Globulin Albumin/Globulin Ratio Lipase Cancelled 25-OH Vitamin D Total Procalcitonin TSH 1.57 Random Cortisol 7.67 Urine Color Urine Appearance Urine pH Ur Specific Stuart Urine Protein Urine Glucose (UA) Urine Ketones Urine Occult Blood Urine Nitrate Urine Bilirubin Urine Urobilinogen Ur Leukocyte Esterase Urine RBC Urine WBC Urine Bacteria Ur Culture Indicated? U Opiates 300ng/mL cut Ur Oxycodone Screen Urine Methadone Screen Ur Barbiturates Screen U Tricyclic Antidepress Ur Phencyclidine Scrn Ur Amphetamines Screen U Methamphetamines Scrn Ur MDMA Scrn (Ecstasy) U Benzodiazepines Scrn Urine Cocaine Screen U Marijuana (THC) Screen SARS-CoV-2 (PCR) Blood Type Antibody Screen Crossmatch 10/15/20 10/15/20 10/15/20 19:46 19:46 20:37 WBC RBC Hgb Hct MCV MCH MCHC RDW Plt Count Neut % (Auto) Lymph % (Auto) [place] % (Auto) Eos % (Auto) Baso % (Auto) Neut # (Auto) Lymph # (Auto) [place] # (Auto) Eos # (Auto) Baso # (Auto) RBC Morphology Dimorphic RBCs Polychromasia Hypochromasia Microcytosis Sodium Potassium Chloride Carbon Dioxide BUN Creatinine Estimated GFR BUN/Creatinine Ratio Glucose Calcium Phosphorus 2.9 Magnesium Total Bilirubin AST ALT Alkaline Phosphatase Total Protein Albumin Globulin Albumin/Globulin Ratio Lipase 25-OH Vitamin D Total Procalcitonin TSH Random Cortisol Urine Color Urine Appearance Urine pH Ur Specific Stuart Urine Protein Urine Glucose (UA) Urine Ketones Urine Occult Blood Urine Nitrate Urine Bilirubin Urine Urobilinogen Ur Leukocyte Esterase Urine RBC Urine WBC Urine Bacteria Ur Culture Indicated? U Opiates 300ng/mL cut Ur Oxycodone Screen Urine Methadone Screen Ur Barbiturates Screen U Tricyclic Antidepress Ur Phencyclidine Scrn Ur Amphetamines Screen U Methamphetamines Scrn Ur MDMA Scrn (Ecstasy) U Benzodiazepines Scrn Urine Cocaine Screen U Marijuana (THC) Screen SARS-CoV-2 (PCR) Negative Blood Type A Positive Antibody Screen Negative Crossmatch See Detail 10/15/20 10/15/20 10/16/20 23:05 23:05 02:21 WBC 10.2 RBC 3.58 L Hgb 6.1 L* Hct 21.2 L MCV 59.3 L D MCH 17.0 L MCHC 28.7 L RDW 22.8 H Plt Count 340 Neut % (Auto) 73.5 Lymph % (Auto) 17.2 L [place] % (Auto) 6.2 Eos % (Auto) 1.9 L Baso % (Auto) 1.2 Neut # (Auto) 7500 H Lymph # (Auto) 1800 [place] # (Auto) 600 Eos # (Auto) 200 Baso # (Auto) 100 RBC Morphology See below Dimorphic RBCs * Polychromasia Hypochromasia Microcytosis Sodium 141 Potassium 3.2 L Chloride 105 Carbon Dioxide 30 BUN 7 L Creatinine 1.01 Estimated GFR > 60.0 BUN/Creatinine Ratio 6.9 Glucose 102 H Calcium 6.2 L* Phosphorus 3.8 Magnesium 1.0 L Total Bilirubin AST ALT Alkaline Phosphatase Total Protein Albumin Globulin Albumin/Globulin Ratio Lipase 119 25-OH Vitamin D Total Procalcitonin TSH Random Cortisol Urine Color Urine Appearance Urine pH Ur Specific [place] Urine Protein Urine Glucose (UA) Urine Ketones Urine Occult Blood Urine Nitrate Urine Bilirubin Urine Urobilinogen Ur Leukocyte Esterase Urine RBC Urine WBC Urine Bacteria Ur Culture Indicated? U Opiates 300ng/mL cut Ur Oxycodone Screen Urine Methadone Screen Ur Barbiturates Screen U Tricyclic Antidepress Ur Phencyclidine Scrn Ur Amphetamines Screen U Methamphetamines Scrn Ur MDMA Scrn (Ecstasy) U Benzodiazepines Scrn Urine Cocaine Screen U Marijuana (THC) Screen SARS-CoV-2 (PCR) Negative Blood Type Antibody Screen Crossmatch 10/16/20 10/16/20 10/16/20 05:48 05:48 05:51 WBC RBC Hgb Hct MCV MCH MCHC RDW Plt Count Neut % (Auto) Lymph % (Auto) [place] % (Auto) Eos % (Auto) Baso % (Auto) Neut # (Auto) Lymph # (Auto) [place] # (Auto) Eos # (Auto) Baso # (Auto) RBC Morphology Dimorphic RBCs Polychromasia Hypochromasia Microcytosis Sodium 138 Potassium 3.1 L Chloride 107 Carbon Dioxide 29 BUN 7 L Creatinine 0.95 Estimated GFR > 60.0 BUN/Creatinine Ratio 7.4 Glucose 95 Calcium 6.0 L* Phosphorus Magnesium 1.7 Total Bilirubin 0.7 AST 19 ALT 8 Alkaline Phosphatase 49 Total Protein 5.9 L Albumin 3.3 L Globulin 2.6 Albumin/Globulin Ratio 1.3 Lipase 25-OH Vitamin D Total Procalcitonin TSH Random Cortisol Urine Color Yellow Urine Appearance Clear Urine pH 7.0 Ur Specific [place] <=1.005 Urine Protein Negative Urine Glucose (UA) Trace H Urine Ketones Negative Urine Occult Blood Negative Urine Nitrate Negative Urine Bilirubin Negative Urine Urobilinogen 0.2 Ur Leukocyte Esterase Negative Urine RBC None seen Urine WBC 0-1/hpf Urine Bacteria None seen Ur Culture Indicated? Cult not indicated U Opiates 300ng/mL cut Negative Ur Oxycodone Screen Negative Urine Methadone Screen Negative Ur Barbiturates Screen Negative U Tricyclic Antidepress Negative Ur Phencyclidine Scrn Negative Ur Amphetamines Screen Negative U Methamphetamines Scrn Negative Ur MDMA Scrn (Ecstasy) Negative U Benzodiazepines Scrn Negative Urine Cocaine Screen Negative U Marijuana (THC) Screen Negative SARS-CoV-2 (PCR) Blood Type Antibody Screen Crossmatch 10/16/20 05:51 WBC RBC Hgb Hct MCV MCH MCHC RDW Plt Count Neut % (Auto) Lymph % (Auto) [place] % (Auto) Eos % (Auto) Baso % (Auto) Neut # (Auto) Lymph # (Auto) [place] # (Auto) Eos # (Auto) Baso # (Auto) RBC Morphology Dimorphic RBCs Polychromasia Hypochromasia Microcytosis Sodium Potassium Chloride Carbon Dioxide BUN Creatinine Estimated GFR BUN/Creatinine Ratio Glucose Calcium Phosphorus Magnesium Total Bilirubin AST ALT Alkaline Phosphatase Total Protein Albumin Globulin Albumin/Globulin Ratio Lipase 25-OH Vitamin D Total Procalcitonin < 0.05 TSH Random Cortisol Urine Color Urine Appearance Urine pH Ur Specific [place] Urine Protein Urine Glucose (UA) Urine Ketones Urine Occult Blood Urine Nitrate Urine Bilirubin Urine Urobilinogen Ur Leukocyte Esterase Urine RBC Urine WBC Urine Bacteria Ur Culture Indicated? U Opiates 300ng/mL cut Ur Oxycodone Screen Urine Methadone Screen Ur Barbiturates Screen U Tricyclic Antidepress Ur Phencyclidine Scrn Ur Amphetamines Screen U Methamphetamines Scrn Ur MDMA Scrn (Ecstasy) U Benzodiazepines Scrn Urine Cocaine Screen U Marijuana (THC) Screen SARS-CoV-2 (PCR) Blood Type Antibody Screen Crossmatch [facility] Medical History Acute anemia Bilateral knee pain Surgical History No history of previous surgery Family History Mother COPD (chronic obstructive pulmonary disease) Alcoholism Supplemental oxygen dependent Father Alcoholism Social History household members: none Smoking Status: Never smoker Assessment & Plan Assessment & Plan narrative: Symptomatic anemia, acute, present on admission -patient's presenting hemoglobin and hematocrit was 5.7/20.1 and corrected to 6.1/21.2 respectively after 1 unit PRBC. He will receive 1 more unit PRBC prior to the 0500 labs. -CT of the chest, abdomen and pelvis did not reveal a source of bleeding, however noted bilateral ground glass opacities with right lower lobe consolidation concernign for a viral/atypical pneumonia. -given history of heartburn suspect the patient may have had a prior ulcer that bled, or gastrinoma, or other etiology -surgery consultation for upper endoscopy in the morning -will start PPI b.i.d. -patient will be made NPO after midnight -will transfuse 2 units of blood for symptomatic anemia -will hold IV hydration Acute hypokalemia, present on admission -patient's initial potassium on admission was 2.7 and after receiving potassium replacement of IV potassium 40 mEq, it has come up to 3.2 -he will receive another 40 mEq of p.o. potassium, recheck potassium in the morning Acute hypomagnimesia, present on admission -patient's initial magnesium was 0.5 and increased to 1.0 after receiving 2 g of IV magnesium -she is ordered for 2 more g of IV magnesium, recheck magnesium in the morning Acute hypocalcemia, present on admission -Patient's initial calcium was 5.2 and increased to 6.2 after receiving Calcitrol 0.25 x1 and will receive another dose before the mornings recheck of his calcium level -corrected calcium was 6.7 and 7.0 respectively, still too low. -the ED ordered calcium PTH intact, PTH intact, intact intraoperative, these are all send outs and will be resulted at a later time. -patient's p.m. cortisol and vitamin-D levels were within normal limits -will await parathyroid level -will continue to return placed calcium
--- NOTE | 2020-10-16 18:57 | P.CONS_ITS ---
History of Present Illness Consult details Date Patient Seen: 10/16/20 Time Patient Seen: 18:58 Chief complaint: sent for abn labs Reason for consult: Anemia, request EGD to rule out upper GI source Requesting provider: Rachel Hull Narrative: This is a 50 yo man who was having pre op labs for an orthopedic procedure, and was told to report to the ER because of the lab findings. He came into ER and was admitted to the medicine service yesterday. In the emergency department he was found to have a hemoglobin and hematocrit of 5.7 and 20.1, K of 2.7, Ca of 5.9 corrected to 6.7. He reports GERD and heartburn for many years. He denies melena, abdominal pain, constipation. He reports some loose stool, but states it was normal color. He sometimes sees blood in the stool, but usually related to straining. He has never had a colonoscopy or upper endoscopy. ROS: He denies fevers sweats or chills, visual changes, difficulty swallowing, chest pain, shortness of breath, he does endorse having soft stools in states he has seen blood in it for the past month, he denies any hematuria or dysuria, denies musculoskeletal complaints other than having both knees needing replacement, he denies having weakness though he states he has a little bit fatigued, denies polydipsia or easy bleeding or bruising. Thirteen system review is otherwise negative other than as mentioned below and in HPI. PE: GENERAL: Alert, comfortable. Appears stated age. Makes minimal eye contact, and answers in short sentences. Vital signs noted. HENT: Normocephalic, atraumatic. Hearing intact. EYES: Conjunctiva pink, sclera white, no periorbital swelling. CARDIOVASCULAR: Regular rate. No pedal edema. RESPIRATORY: Non-tachypneic, breathing comfortably on room air. GASTROINTESTINAL: Abdomen soft, rounded, nontender Perianal: No gross blood, brown stool present on the perianal area ROBERTO: Deferred per patient request GENITALURINARY: No flank tenderness. MUSCULOSKELETAL: Equal tone and mass bilaterally. SKIN: Warm, dry, soft, appropriate color for ethnicity. No other lesions, rashes, or wounds. NEURO: Alert and Oriented X 3. No gross sensory deficits. PSYCH: Flattened affect and neutral mood. Meds Home Medications and Allergies Home Medications Medication Instructions Recorded Confirmed Type cephalexin 500 mg PO TID #30 cap 06/21/20 Rx doxycycline hyclate 100 mg PO BID #14 tab 06/21/20 Rx Allergies Allergy/AdvReac Type Severity Reaction Status Date / Time No Known Drug Allergies Allergy Verified 06/21/20 15:17 Exam Vital Signs (past 8 hours): - 10/16/20 11:12 10/16/20 15:54 10/16/20 17:36 Temperature 98.0 F 98.0 F 97.7 F Pulse Rate 75 76 76 Respiratory Rate 18 18 18 Blood Pressure 117/69 131/79 137/78 Pulse Oximetry 94 99 10/16/20 17:53 Temperature 99.4 F Pulse Rate 78 Respiratory Rate 20 Blood Pressure 129/75 Pulse Oximetry Oxygen Delivery Method Room Air Oxygen Flow Rate [address] scan - abdomen: Radiologist's impression: [address] [id number] Scan ReportSigned Patient: Dejan MonroeMR#: [id number]: [id number]:[id number]/Sex: 50 / MDate of Service: 10/16/20Loc: AC215- 1Accession Number: [id number] Procedure: CT chest abd pel w con Ordering Provider: Nakia Rivera PROCEDURE: CT CHEST ABD PEL W CON INDICATIONS: Weakness, anemia, electrolyte abnormalities TECHNIQUE: After the administration of intravenous contrast, 5 mm thick sections acquired from the lung apices to the symphysis. 5 mm coronal and sagittal reformats were performed, with additional 7 mm MIP reformats through the lungs. For radiation dose reduction, the following was used: automated exposure control, adjustment of mA and/or kV according to patient size. COMPARISON: None. FINDINGS: Image quality: Excellent. CHEST: Lungs and pleura: There are bilateral scattered indistinct areas of predominantly peripheral ground-glass opacities with a peripheral region of confluent consolidation posteriorly in the right lower lobe. There is mild linear and nodular thickening along the left major fissure on series 3, images 153 and 156 as well as along the right major fissure on images 175 and 200. The nodular components measure up to 5 mm along the right lower lobe. Findings are suggestive of intrapulmonary lymph nodes. No pleural effusions or pneumothorax. Central and peripheral airways appear patent and normal in caliber. Mediastinum: Heart size is normal. No pericardial effusion. There is mild co ronary arterial vascular calcification. No mediastinal or hilar adenopathy by size criteria. Thoracic aorta and central pulmonary arteries are normal in size. Esophagus is normal in caliber. There is a small hiatal hernia. Chest wall: No axillary or supraclavicular adenopathy by size criteria. ABDOMEN: Solid organs: Evaluation of the liver demonstrates no focal hepatic lesions. The gallbladder appears within normal limits without calcified gallstones. Biliary system is non-dilated. Pancreas enhances normally. No peripancreatic fat stranding or fluid collections. No pancreatic duct dilatation. The spleen is normal in size. No adrenal nodules. Kidneys demonstrate no hydronephrosis. Peritoneum and bowel: Bowel loops demonstrate normal wall thickness and caliber. There are few scattered nonspecific air-fluid levels within nondistended loops of small bowel. The appendix is normal in appearance. There is colonic diverticulosis without acute diverticulitis. No free fluid or air. Nodes and vessels: No retroperitoneal or mesenteric adenopathy by size criteria . Aorta and inferior vena cava are normal in size. Miscellaneous: No ventral hernias. PELVIS: Genitourinary: Bladder wall thickness is normal. Miscellaneous: There are bilateral fat-containing inguinal hernias, moderate to large in size on the right and small on the left. No inguinal adenopathy. Bones: No suspicious bony lesions. No vertebral body compression fractures. IMPRESSION: 1. Bilateral peripheral patchy areas of ground-glass opacity with a confluent region of consolidation in the right lower lobe. Findings likely represent pneumonia, possibly from atypical viral etiologies. 2. Bilateral fat-containing inguinal hernias, including a moderate to large her gianfranco on the right. 3. Scattered nonspecific small bowel air-fluid levels without abnormal distentio n to suggest obstruction. Findings may represent a mild enteritis or ileus. 4. Small hiatal hernia. Concordant with preliminary interpretation. Dictated by: Brendon Maldonado M.D. on 10/16/2020 at 8:31 Approved by: Brendon Maldonado M.D. on 10/16/2020 at 8:44 Labs Result Diagrams: 10/15/20 23:05 10/16/20 05:51 Labs: Laboratory Results - last 24 hr 10/15/20 10/15/20 10/15/20 19:35 19:35 19:35 WBC 10.3 RBC 3.57 L Hgb 5.7 L* Hct 20.1 L* MCV 56.3 L MCH 15.8 L MCHC 28.1 L RDW 21.5 H Plt Count 344 Neut % (Auto) 79.2 H Lymph % (Auto) 12.7 L [place] % (Auto) 5.7 Eos % (Auto) 1.2 L Baso % (Auto) 1.2 Neut # (Auto) 8100 H Lymph # (Auto) 1300 [place] # (Auto) 600 Eos # (Auto) 100 Baso # (Auto) 100 RBC Morphology Abnormal Dimorphic RBCs Polychromasia 1+ H Hypochromasia 4+ H Microcytosis 3+ H Sodium 141 Potassium 2.7 L* Chloride 103 Carbon Dioxide 27 BUN 7 L Creatinine 1.03 Estimated GFR > 60.0 BUN/Creatinine Ratio 6.8 Glucose 119 H Calcium 5.9 L* Phosphorus Magnesium 0.5 L* Total Bilirubin 0.3 AST 22 ALT 11 Alkaline Phosphatase 48 Total Protein 7.0 Albumin 4.0 Globulin 3.0 Albumin/Globulin Ratio 1.3 Lipase 25-OH Vitamin D Total 34.0 Procalcitonin TSH Random Cortisol Urine Color Urine Appearance Urine pH Ur Specific [place] Urine Protein Urine Glucose (UA) Urine Ketones Urine Occult Blood Urine Nitrate Urine Bilirubin Urine Urobilinogen Ur Leukocyte Esterase Urine RBC Urine WBC Urine Bacteria Ur Culture Indicated? U Opiates 300ng/mL cut Ur Oxycodone Screen Urine Methadone Screen Ur Barbiturates Screen U Tricyclic Antidepress Ur Phencyclidine Scrn Ur Amphetamines Screen U Methamphetamines Scrn Ur MDMA Scrn (Ecstasy) U Benzodiazepines Scrn Urine Cocaine Screen U Marijuana (THC) Screen SARS-CoV-2 (PCR) Blood Type Antibody Screen Crossmatch 10/15/20 10/15/20 10/15/20 19:35 19:35 19:35 WBC RBC Hgb Hct MCV MCH MCHC RDW Plt Count Neut % (Auto) Lymph % (Auto) [place] % (Auto) Eos % (Auto) Baso % (Auto) Neut # (Auto) Lymph # (Auto) [place] # (Auto) Eos # (Auto) Baso # (Auto) RBC Morphology Dimorphic RBCs Polychromasia Hypochromasia Microcytosis Sodium Potassium Chloride Carbon Dioxide BUN Creatinine Estimated GFR BUN/Creatinine Ratio Glucose Calcium Phosphorus Cancelled Magnesium Cancelled Total Bilirubin AST ALT Alkaline Phosphatase Total Protein Albumin Globulin Albumin/Globulin Ratio Lipase Cancelled 25-OH Vitamin D Total Procalcitonin TSH 1.57 Random Cortisol 7.67 Urine Color Urine Appearance Urine pH Ur Specific [place] Urine Protein Urine Glucose (UA) Urine Ketones Urine Occult Blood Urine Nitrate Urine Bilirubin Urine Urobilinogen Ur Leukocyte Esterase Urine RBC Urine WBC Urine Bacteria Ur Culture Indicated? U Opiates 300ng/mL cut Ur Oxycodone Screen Urine Methadone Screen Ur Barbiturates Screen U Tricyclic Antidepress Ur Phencyclidine Scrn Ur Amphetamines Screen U Methamphetamines Scrn Ur MDMA Scrn (Ecstasy) U Benzodiazepines Scrn Urine Cocaine Screen U Marijuana (THC) Screen SARS-CoV-2 (PCR) Blood Type Antibody Screen Crossmatch 10/15/20 10/15/20 10/15/20 19:46 19:46 20:37 WBC RBC Hgb Hct MCV MCH MCHC RDW Plt Count Neut % (Auto) Lymph % (Auto) [place] % (Auto) Eos % (Auto) Baso % (Auto) Neut # (Auto) Lymph # (Auto) [place] # (Auto) Eos # (Auto) Baso # (Auto) RBC Morphology Dimorphic RBCs Polychromasia Hypochromasia Microcytosis Sodium Potassium Chloride Carbon Dioxide BUN Creatinine Estimated GFR BUN/Creatinine Ratio Glucose Calcium Phosphorus 2.9 Magnesium Total Bilirubin AST ALT Alkaline Phosphatase Total Protein Albumin Globulin Albumin/Globulin Ratio Lipase 25-OH Vitamin D Total Procalcitonin TSH Random Cortisol Urine Color Urine Appearance Urine pH Ur Specific [place] Urine Protein Urine Glucose (UA) Urine Ketones Urine Occult Blood Urine Nitrate Urine Bilirubin Urine Urobilinogen Ur Leukocyte Esterase Urine RBC Urine WBC Urine Bacteria Ur Culture Indicated? U Opiates 300ng/mL cut Ur Oxycodone Screen Urine Methadone Screen Ur Barbiturates Screen U Tricyclic Antidepress Ur Phencyclidine Scrn Ur Amphetamines Screen U Methamphetamines Scrn Ur MDMA Scrn (Ecstasy) U Benzodiazepines Scrn Urine Cocaine Screen U Marijuana (THC) Screen SARS-CoV-2 (PCR) Negative Blood Type A Positive Antibody Screen Negative Crossmatch See Detail 10/15/20 10/15/20 10/16/20 23:05 23:05 02:21 WBC 10.2 RBC 3.58 L Hgb 6.1 L* Hct 21.2 L MCV 59.3 L D MCH 17.0 L MCHC 28.7 L RDW 22.8 H Plt Count 340 Neut % (Auto) 73.5 Lymph % (Auto) 17.2 L [place] % (Auto) 6.2 Eos % (Auto) 1.9 L Baso % (Auto) 1.2 Neut # (Auto) 7500 H Lymph # (Auto) 1800 [place] # (Auto) 600 Eos # (Auto) 200 Baso # (Auto) 100 RBC Morphology See below Dimorphic RBCs * Polychromasia Hypochromasia Microcytosis Sodium 141 Potassium 3.2 L Chloride 105 Carbon Dioxide 30 BUN 7 L Creatinine 1.01 Estimated GFR > 60.0 BUN/Creatinine Ratio 6.9 Glucose 102 H Calcium 6.2 L* Phosphorus 3.8 Magnesium 1.0 L Total Bilirubin AST ALT Alkaline Phosphatase Total Protein Albumin Globulin Albumin/Globulin Ratio Lipase 119 25-OH Vitamin D Total Procalcitonin TSH Random Cortisol Urine Color Urine Appearance Urine pH Ur Specific [place] Urine Protein Urine Glucose (UA) Urine Ketones Urine Occult Blood Urine Nitrate Urine Bilirubin Urine Urobilinogen Ur Leukocyte Esterase Urine RBC Urine WBC Urine Bacteria Ur Culture Indicated? U Opiates 300ng/mL cut Ur Oxycodone Screen Urine Methadone Screen Ur Barbiturates Screen U Tricyclic Antidepress Ur Phencyclidine Scrn Ur Amphetamines Screen U Methamphetamines Scrn Ur MDMA Scrn (Ecstasy) U Benzodiazepines Scrn Urine Cocaine Screen U Marijuana (THC) Screen SARS-CoV-2 (PCR) Negative Blood Type Antibody Screen Crossmatch 10/16/20 10/16/20 10/16/20 05:48 05:48 05:51 WBC RBC Hgb Hct MCV MCH MCHC RDW Plt Count Neut % (Auto) Lymph % (Auto) [place] % (Auto) Eos % (Auto) Baso % (Auto) Neut # (Auto) Lymph # (Auto) [place] # (Auto) Eos # (Auto) Baso # (Auto) RBC Morphology Dimorphic RBCs Polychromasia Hypochromasia Microcytosis Sodium 138 Potassium 3.1 L Chloride 107 Carbon Dioxide 29 BUN 7 L Creatinine 0.95 Estimated GFR > 60.0 BUN/Creatinine Ratio 7.4 Glucose 95 Calcium 6.0 L* Phosphorus Magnesium 1.7 Total Bilirubin 0.7 AST 19 ALT 8 Alkaline Phosphatase 49 Total Protein 5.9 L Albumin 3.3 L Globulin 2.6 Albumin/Globulin Ratio 1.3 Lipase 25-OH Vitamin D Total Procalcitonin TSH Random Cortisol Urine Color Yellow Urine Appearance Clear Urine pH 7.0 Ur Specific [place] <=1.005 Urine Protein Negative Urine Glucose (UA) Trace H Urine Ketones Negative Urine Occult Blood Negative Urine Nitrate Negative Urine Bilirubin Negative Urine Urobilinogen 0.2 Ur Leukocyte Esterase Negative Urine RBC None seen Urine WBC 0-1/hpf Urine Bacteria None seen Ur Culture Indicated? Cult not indicated U Opiates 300ng/mL cut Negative Ur Oxycodone Screen Negative Urine Methadone Screen Negative Ur Barbiturates Screen Negative U Tricyclic Antidepress Negative Ur Phencyclidine Scrn Negative Ur Amphetamines Screen Negative U Methamphetamines Scrn Negative Ur MDMA Scrn (Ecstasy) Negative U Benzodiazepines Scrn Negative Urine Cocaine Screen Negative U Marijuana (THC) Screen Negative SARS-CoV-2 (PCR) Blood Type Antibody Screen Crossmatch 10/16/20 05:51 WBC RBC Hgb Hct MCV MCH MCHC RDW Plt Count Neut % (Auto) Lymph % (Auto) [place] % (Auto) Eos % (Auto) Baso % (Auto) Neut # (Auto) Lymph # (Auto) [place] # (Auto) Eos # (Auto) Baso # (Auto) RBC Morphology Dimorphic RBCs Polychromasia Hypochromasia Microcytosis Sodium Potassium Chloride Carbon Dioxide BUN Creatinine Estimated GFR BUN/Creatinine Ratio Glucose Calcium Phosphorus Magnesium Total Bilirubin AST ALT Alkaline Phosphatase Total Protein Albumin Globulin Albumin/Globulin Ratio Lipase 25-OH Vitamin D Total Procalcitonin < 0.05 TSH Random Cortisol Urine Color Urine Appearance Urine pH Ur Specific [place] Urine Protein Urine Glucose (UA) Urine Ketones Urine Occult Blood Urine Nitrate Urine Bilirubin Urine Urobilinogen Ur Leukocyte Esterase Urine RBC Urine WBC Urine Bacteria Ur Culture Indicated? U Opiates 300ng/mL cut Ur Oxycodone Screen Urine Methadone Screen Ur Barbiturates Screen U Tricyclic Antidepress Ur Phencyclidine Scrn Ur Amphetamines Screen U Methamphetamines Scrn Ur MDMA Scrn (Ecstasy) U Benzodiazepines Scrn Urine Cocaine Screen U Marijuana (THC) Screen SARS-CoV-2 (PCR) Blood Type Antibody Screen Crossmatch Assessment & Plan Assessment and plan (1) Acute anemia: Status: Acute (2) Chronic GERD: Status: Acute (3) Chronic heartburn: Status: Acute Assessment & Plan narrative: 15 minutes were spent reviewing the patient's imaging and labs, and discussing his case with Dr. Hull. 21 minutes were spent examining the patient and discussing with him the need for upper endoscopy, and the risks and benefits thereof. Risks and benefits of diagnostic EGD and possible biopsy were discussed with the patient including risk of bleeding, perforation, need for additional procedures, risks of anesthesia. The patient desires to proceed with the upper endoscopy procedure. Recommendations: Transfuse to hemoglobin greater than 7 NPO after midnight EGD with anesthesia schedule for 9:[address] Dr[address] Mickie [id number] status: Negative Result date/Date tested (Pos, Neg/Pending): 10/15/20 Time Spent With Patient Time with patient: Greater than 35 minutes
[2020-10-16] MEDS: SODIUM CHLORIDE 0.9% FLUSH 10 ML IV (21:08)
[2020-10-17] VITALS (19 sets, daily range): BP systolic 102–130; BP diastolic 42–77; PULSE 71–85; RESP 13–25; TEMP 36.1–37.3; O2SAT 89–97; BMI 29.0
--- NOTE | 2020-10-17 | PATH_ITS ---
[facility] Accession Number: [id number] . 01 Material submitted: . esophagus, E-G Junction - GE JUNCTION MASS . 01 Clinical history: . SENT FOR ABN LABS . 02 Diagnosis: Gastroesophgeal Junction, Mass, Biopsy: Inflamed hyperplastic polyp. Negative for intestinal metaplasia. Negative for dysplasia and malignancy. MRV 10/21/2020 1355 Local . 02 Electronically signed: . Jessica Richard MD, Pathologist NPI- [id number] . 01 Gross description: . GE JUNCTION MASS: Received in formalin are 2 fragment(s) of ramirez, soft tissue measuring 0.6 x 0.6 x 0.5 cm to 0.7 x 0.7 x 0.6 cm submitted entirely in 1 cassette(s) /SARAN 10/19/2020 2108 Local . 02 Pathologist provided ICD-10: R13.10 . 02 CPT . 915718 Performed at: 01 [facility] [address] [facility], [place], [place] [id number] MD Brendon Bustillos MD Phone: [phone] Performed at: 02 [facility] [address] [place], [place] [id number] MD Jessica Richard MD Phone: [phone]
[2020-10-17 06:08] LABS: HEMOLYSIS < 15 (0-50); Potassium 3.6 mmol/L (3.4-5.1)
[2020-10-17 06:09] LABS: BUN Creatinine Ratio 7.2 (6-22); Blood Urea Nitrogen 6 mg/dL (9-20); Calcium 7.3 mg/dL (8.4-10.2); Carbon Dioxide 27 mmol/L (22-32); Chloride 109 mmol/L (98-107); Estimated Glomerular Filt Rate > 60.0 mL/min (>60); Glucose 108 mg/dL (70-100); Magnesium 1.4 mg/dL (1.6-2.3); Sodium 138 mmol/L (137-145)
[2020-10-17 06:10] LABS: Parathyroid Hormone, Intact 26 pg/mL (15-65)
[2020-10-17 06:23] LABS: Basophils Absolute Auto 100 /uL (0-100); Basophils Percent Auto 1.2 % (0-2); Eosinophils Absolute Auto 400 /uL (0-450); Eosinophils Percent Auto 3.8 % (2-4); Hemoglobin 8.2 g/dL (13.5-17.5); Lymphocytes Absolute Auto 1100 /uL (1100-4500); Lymphocytes Percent Auto 9.5 % (25-40); Mean Corpuscular HGB Conc 30.1 % (30-36); Mean Corpuscular Volume 66.4 fL (80-100); Monocytes Absolute Auto 700 /uL (0-900); Monocytes Percent Auto 5.8 % (3-14); Neutrophils Absolute Auto 9000 /uL (1500-7000); Neutrophils Percent Auto 79.7 % (50-75); Platelet Count 310 X10^3/uL (150-400); Red Blood Cell Count 4.11 X10^6/uL (4.5-5.9); Red Cell Distribution Width 31.8 % (11.6-14.8); White Blood Cell Count 11.3 X10^3/uL (4.5-11.0)
[2020-10-17 06:54] LABS: Add Manual Diff / Slide Review SLIDE REVIEW; Hematocrit 27.3 % (41-53)
[2020-10-17] MEDS: CALCIUM GLUCONATE 9.3 MEQ in SODIUM CHLORIDE 0.9% 50 ML 140 ML IV (08:07)
[2020-10-17] MEDS: SODIUM CHLORIDE 0.9% FLUSH 10 ML IV (08:09)
[2020-10-17] MEDS: LACTATED RINGERS 1,000 ML 42 ML IV (08:59)
--- NOTE | 2020-10-17 09:09 | PM.PREOP ---
Pre-operative Note COVID-19 COVID-19 status: Negative Interval Note History & Physical reviewed/Exam performed by Physician: Yes Changes to H&P: No
[2020-10-17 09:44] LABS: Anisocytosis 3+; Hypochromasia 3+; Polychromasia 2+
--- NOTE | 2020-10-17 10:14 | PM.OP.ENDO ---
Operative Date/Time/Diagnoses Date of procedure: 10/17/20 Time of procedure: 10:15 Pre-op diagnosis: anemia Post-op diagnosis: other (gastric mass) Procedure & Clinicians Study performed: esophagoduodenoscopy Same procedure as scheduled: Yes Indications: 50M with anemia here for EGD Surgeon: Dario Corado Procedure Notes Procedure in detail: Patient placed in left lateral decubitus position. Time out was performed. He was intubated with an endotracheal tube. A bite block was placed. the scope was inserted into the mouth and advanced through the esophagus and into the stomach. The pylorus was intubated and the duodenum was normal to the 2nd portion. The scope was retroflexed within the stomach and there a 2 cm non pedunculated ulcerated mass in the top of the stomach just below the GE junction. It was partially removed with the snare but I could not remove it in its entirety. The scope was withdrawn into the esophagus the Z line was seen at 40 cm from the incisions. There was no Cho's esophagitis or masses or strictures. Stomach was desufflated and scope removed. Patient tolerated procedure well. Findings: possible cancer Specimen(s): other (gastric mass) Complications: none Impression: gastric mass concerning for malignancy Post-procedure Recommendations: Other recommendation (will follow up with biopsy pathology. Ok for diet as tolerated) Disposition: Acute Care
[2020-10-17] MEDS: ALBUTEROL 2.5 MG/3 ML NEB (ADULT) INH (10:26)
--- NOTE | 2020-10-17 10:52 | PC.NURSE ---
Addendum entered by Anne Marin R.N. 10/17/20 14:18: Patient given discharge instructions. Verbalized understanding to follow up with Dr. Corado in one week. IV x 2 removed, Tele removed. Patient tolerated. Patient transferred via wheelchair with assist from ROOFING APPLICATOR. Brother accompanied. Addendum entered by Anne Marin R.N. 10/17/20 13:30: Patient resting in bed with eyes closed. PT denied chest pain, SOB at 1100. VS remain stable. Patient tolerated lunch, no complaints of N/V. Patient ambulated to restroom, denied dizziness, lightheadedness, SOB. Mg+ infusing in L FA. Patients family notified of pending D/C. Original Note: Patient transferred for Endoscopy and returned via stretcher @ 1045, patient is lethargic, impulsive at times. Bed rails x3, bed alarm on. Tele back on, SCD's on, cont. pulse ox on, patient at 96% on room air, will continue to monitor. VS WNL at this time. Door left open.
--- NOTE | 2020-10-17 10:58 | SUR.PHASEI ---
pt very anxious, restless. States he drinks 2-3 times a week, usually a 6 pack at a time with some hard alcohol at times. reports last drink was oct 02. informed nurse upstairs. in pacu, pt reported chest pressure and difficulty breathing. informed Dr Caruso and he examined pt. EKG ordered, NSR. RT states chest tightness, Shady ordered albuterol neb. Pt states slight improvement in breathing after. Report to Anne SAMANIEGO. Pt up to room 215, able to transfer [facility].
[2020-10-17] MEDS: ACETAMINOPHEN 325 MG TABLET 650 MG PO (11:28)
[2020-10-17] MEDS: MAGNESIUM SULFATE 2 GM/50 ML PIGGYBACK IV (11:41)
[2020-10-17] MEDS: PANTOPRAZOLE 40 MG TABLET PO (11:42)
[2020-10-17 13:36] LABS: Ionized Calcium 3.1 mg/dL (4.5-5.6)
--- NOTE | 2020-10-17 18:17 | P.DS_ITS ---
History of Present Illness History of Present Illness Date Patient Seen: 10/17/20 Chief complaint: sent for abn labs Narrative: Dejan Monroe is a 50 y.o. 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 Per patient, he stated they told him to go the the ED, apparently he was driving home and decided to present to [place]. In the emergency department he was found to have a hemoglobin and hematocrit of 5.7 and 20.1, respectively, his potassium was critically low at 2.7, calcium was also critically low at 5.9 with the corrected calcium of 6.7. The patient states that the only problem he has is GERD for which he takes Zygrid for heartburn. He denies fevers sweats or chills, visual changes, difficulty swallowing, chest pain, shortness of breath, he does endorse having soft stools in states he has seen blood in it for the past month, he denies any hematuria or dysuria, denies musculoskeletal complaints other than having both knees needing replacement, he denies having weakness though he states he has a little bit fatigued, denies polydipsia or easy bleeding or bruising. Patient is mildly febrile at 99.8, blood pressure 127/65, heart rate 85, respiratory rate 22, oxygen saturation of 90% on room air he weighs 95.2 kg with a BMI of 29. Discharge Providers Provider Date of admission: 10/15/20 22:08 Discharge Date: 10/17/20 Discharge provider: Rachel Hull MD Summary Hospital Course Discharge Diagnosis: 1. 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 Blood loss anemia, status post 4 units of packed RBCs 3. Hypocalcemia 4. Hypo magnesemia 5. Hyperkalemia Hospital Course: Patient was admitted to the hospital for evaluation of abnormal laboratory findings. He was found to have a hemoglobin of 5 on admission as well as a low potassium, magnesium, and calcium. Patient received replacement of his electrolytes. He received 4 units of packed RBCs for his anemia. He had no evidence of blood loss during the hospital stay. His stool was guaiac negative. The patient did complain of heartburn. Stated he had all his life. Patient underwent upper endoscopy for evaluation of GI bleeding. Upper endoscopy showed an ulcerated gastric lesion which is highly suspicious for gastric carcinoma. Patient tolerated procedure without difficulty. His diet was advanced. His hemoglobin improved significantly. His electrolytes were replaced. Patient was placed on a proton pump inhibitor twice daily. He was discharged home with instructions to follow-up with Dr. Corado regarding next steps. Status at Discharge Cognitive/behavioral status at discharge: oriented Functional status at discharge: independent ambulation Overall status at discharge: patient is back to baseline Time Spent with Patient Time spent: Less than 30 minutes Exam Vital Signs (past 8 hours): - 10/17/20 10:20 10/17/20 10:30 10/17/20 10:37 Temperature 98.2 F Pulse Rate 78 77 71 Respiratory Rate 20 20 16 Blood Pressure 117/72 110/71 Pulse Oximetry 95 95 95 10/17/20 10:45 10/17/20 11:15 10/17/20 11:45 Temperature 98.3 F 98.1 F 97.3 F L Pulse Rate 85 78 80 Respiratory Rate 16 18 18 Blood Pressure 117/72 128/74 125/70 Pulse Oximetry 96 97 95 10/17/20 12:45 Temperature 98.2 F Pulse Rate 82 Respiratory Rate 18 Blood Pressure 118/64 Pulse Oximetry 97 Oxygen Delivery Method Nasal Cannula Oxygen Flow Rate 0 Narrative Exam Narrative: Pleasant gentleman gentleman resting comfortably in no obvious distress, ill-appearing Lungs: Clear to auscultation Cardiac exam: Regular rate and rhythm normal S1-S2 with a 2/6 systolic ejection murmur Abdomen: Soft, nontender, nondistended Extremities: No edema Objective Labs Result Diagrams: 10/17/20 05:45 10/17/20 05:45 Labs: Laboratory Results - last 24 hr 10/15/20 10/15/20 10/15/20 19:46 19:46 19:46 WBC RBC Hgb Hct MCV MCH MCHC RDW Plt Count Neut % (Auto) Lymph % (Auto) Pratt % (Auto) Eos % (Auto) Baso % (Auto) Neut # (Auto) Lymph # (Auto) Pratt # (Auto) Eos # (Auto) Baso # (Auto) RBC Morphology Polychromasia Hypochromasia Anisocytosis Sodium Potassium Chloride Carbon Dioxide BUN Creatinine Estimated GFR BUN/Creatinine Ratio Glucose Calcium Ionized Calcium Jayme 3.1 L Magnesium PTH Intact 26 PTH Intact Intraop Comment Blood Type A Positive Antibody Screen Negative Crossmatch See Detail 01/16/21 01/16/21 05:45 05:45 WBC 11.3 H RBC 4.11 L Hgb 8.2 L Hct 27.3 L MCV 66.4 L D MCH 20.0 L MCHC 30.1 RDW 31.8 H Plt Count 310 Neut % (Auto) 79.7 H Lymph % (Auto) 9.5 L Pratt % (Auto) 5.8 Eos % (Auto) 3.8 Baso % (Auto) 1.2 Neut # (Auto) 9000 H Lymph # (Auto) 1100 Pratt # (Auto) 700 Eos # (Auto) 400 Baso # (Auto) 100 RBC Morphology See below Polychromasia 2+ H Hypochromasia 3+ H Anisocytosis 3+ H Sodium 138 Potassium 3.6 Chloride 109 H Carbon Dioxide 27 BUN 6 L Creatinine 0.83 Estimated GFR > 60.0 BUN/Creatinine Ratio 7.2 Glucose 108 H Calcium 7.3 L Ionized Calcium Jayme Magnesium 1.4 L PTH Intact PTH Intact Intraop Blood Type Antibody Screen Crossmatch [facility] Medical History Acute anemia Bilateral knee pain Surgical History No history of previous surgery Family History Mother COPD (chronic obstructive pulmonary disease) Alcoholism Supplemental oxygen dependent Father Alcoholism Social History household members: none Smoking Status: Never smoker alcohol intake: current Discharge Assessment & Plan Assessment and Plan Assessment: 1. 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 Subacute blood loss in the Blood loss anemia 3. Hypocalcemia, resolved 4. Hypokalemia, resolved 5. Hypo magnesemia, resolved Plan of Treatment: Patient is discharging home on a proton pump inhibitor. He is instructed to follow-up with Dr. Corado as an outpatient to discuss next steps in terms of evaluation and biopsy and or treatment of his probable gastric carcinoma. Pathology results will be sent to Dr. Corado discussed with the patient the next course of action. Discharge Plan Discharge Plan Patient Disposition: Home Provider Discharge Comment: f/u with Dr. Corado in 1 week Discharge orders & Medications Prescriptions: New omeprazole 40 mg capsule,delayed release(DR/EC) 40 mg PO BID Qty: 60 RF: 3 Continued cephalexin 500 mg capsule 500 mg PO TID Qty: 30 RF: 0 doxycycline hyclate 100 mg tablet 100 mg PO BID Qty: 14 RF: 0 Follow up/Referrals: Dario Corado MD [Physician] - Discharge Health Status Multidrug resistant organism: No MDRO Diet/Activity/Treatments Diet: Diet as Tolerated Skin/Wound/Dressing Care Report to your healthcare provider any signs of infection, such as:: increased pain Visit Report/Discharge Packet Instructions: DI for Gastroesophageal Reflux Disease (GERD), DI for Gastritis Discharge Data Attending Provider: Nakia Rivera
--- NOTE | 2020-10-22 13:29 | PC.NURSE ---
Addendum entered by Sonya Saldivar R.N. 10/22/20 13:39: Late entry; Calcium infusion initiated 10/16 at 16:15 complete at 16:46. Original Note: Late Entry; Magnesium infusion initiated 10/16 at 03:06, complete at 05:07. LR infusion initiated 10/17 at 08:59, stopped at discharge, 14:20.
[2020-11-11 10:59] LABS: Calcium 6.1
== END 2020-10-17 14:20 | disposition home or self-care (01) ==
LOC: ED 22:08 → AC 22:09
PROVIDERS: Internal Medicine; Surgery; Admitting Provider Nurse Practitioner Family; Emergency Provider Emergency Medicine; Referring Provider Emergency Medicine; Visit Provider Nurse Practitioner Family
PROC: 0DJ08ZZ Inspection of Upper Intestinal Tract, Via Natural or Artificial Opening Endoscopic (ICD-10-PCS; CPT 43235; principal; 2020-10-17 08:45)
DX: K22.8 Other specified diseases of esophagus (principal); K31.7 Polyp of stomach and duodenum; D50.0 Iron deficiency anemia secondary to blood loss (chronic); R12 Heartburn; E87.6 Hypokalemia; E83.42 Hypomagnesemia; E83.51 Hypocalcemia; Z20.822 Contact with and (suspected) exposure to COVID-19
CPT/HCPCS: 43239; 36415; 36430; 71260; 74177; 80048; 80053; 80305; 81001; 82306; 82310; 82330; 82533; 82962; 83690; 83735; 83970; 84100; 84145; 84443; 85025; 86850; 86900; 86901; 87635; 93005; 93010; 94640; 96361; 96365; 96366; 96368; 99283; 99291; C9803; G0378; P9016; J0610; J3475; J3480; J7613; Q9967

== ENCOUNTER → 2020-12-05 09:16 | Outpatient (CLI) | payer OTHER, MEDICAID, SELFPAY ==
[2020-10-23 14:02] VITALS: BMI 29.2
[2020-12-05 11:35] LABS: COVID19 -Nasal RAPID Negative (Negative)
== END ==
PROVIDERS: Visit Provider Nurse Practitioner
DX: Z20.822 Contact with and (suspected) exposure to COVID-19 (principal)
CPT/HCPCS: 87635

== ENCOUNTER → 2021-01-05 13:19 | Outpatient (CLI) | payer OTHER, MEDICAID, SELFPAY ==
[2020-10-23 14:02] VITALS: BMI 29.2
--- NOTE | 2021-01-05 | DI.MRI.S_ITS ---
PROCEDURE: MR KNEE RT WO CON INDICATIONS: Pain in right knee TECHNIQUE: Noncontrast sagittal PD fast spin echo and T2 fast spin echo with fat saturation, sagittal 3-D FLASH with fat saturation; coronal T1 spin echo and PD fast spin echo with fat saturation, and axial PD fast spin echo with fat saturation through the knee. COMPARISON: [facility], CR, XR KNEE ARTHRITIC SERIES BI, 10/15/2020, 15:21. FINDINGS: Image quality: Excellent. Menisci: A band of meniscal tissue is seen extending from the posterior horn of the medial meniscus to the anterior horn of the medial meniscus in the intercondylar notch that most likely represents a buckle handle tear rather than a normal variant menisco-meniscal ligament. The body of the medial meniscus is mildly diminutive, and there is a superimposed horizontal oblique tear at the body of the medial meniscus extending to the outer third of the tibial articular surface. The lateral meniscus is intact. Cruciate ligaments: The anterior and posterior cruciate ligaments appear intact. Medial structures: The medial collateral ligament appears intact. The semimembranosus tendon insertions and meniscocapsular junction appear intact. Visualized portions of the pes anserinus tendons appear normal. No abnormal bursal fluid. Lateral structures: The lateral collateral ligament, long and short heads of the biceps femoris tendon appear intact. The popliteus tendon appears intact. No signs of posterolateral corner injury. Iliotibial band appears normal. Anterior structures: The quadriceps and patellar tendons appear intact. Patellar alignment is normal. No femoral trochlear dysplasia or ventral trochlear prominence. No edema in the infrapatellar fat pad. Bones and cartilage: No bone marrow contusions or fractures. There is mild thinning of the articular cartilages in the weight-bearing portion of the medial compartment. The lateral compartment articular cartilages are intact. There is mild partial-thickness surface irregularity at the median ridge of the patella. Joint space: There is physiologic knee joint fluid. No Benton's cyst. IMPRESSION: 1. Vertical longitudinal tear of the medial meniscus with a bucket-handle flap displaced into the intercondylar notch. Mildly diminutive rim of residual meniscal tissue is seen at the meniscal body with superimposed horizontal oblique tearing extending to the outer third of the tibial articular surface. 2. Intact cruciate and collateral ligaments. No acute trabecular bone injury. 3. 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 Dictated by: Bladimir Benites M.D. on 01/05/2021 at 14:55 Approved by: Bladimir Benites M.D. on 01/05/2021 at 15:07
== END ==
PROVIDERS: PCP Family Medicine; Referring Provider Physician Assistant Surgical; Visit Provider Physician Assistant Surgical
DX: M17.0 Bilateral primary osteoarthritis of knee (principal); M25.561 Pain in right knee; S83.211A Bucket-handle tear of medial meniscus, current injury, right knee, initial encounter; M94.261 Chondromalacia, right knee
CPT/HCPCS: 73721